=== PATIENT | female | born 1955 | race Caucasian/White ===

== ENCOUNTER 2017-04-05 09:00 | Inpatient (IN) ==
[2017-04-05] MEDS ORDERED: Acetaminophen 325 MG TABLET PO PRN (10:42)
[2017-04-05] MEDS ORDERED: Ondansetron 4 MG/2 ML VIAL IVP PRN (10:42)
[2017-04-05] MEDS ORDERED: *HR* Morphine 2 MG/ML SYRINGE IVP PRN (10:42)
[2017-04-05] MEDS ORDERED: Naloxone 0.4 MG/ML INJ IVP PRN (10:42)
[2017-04-05] MEDS ORDERED: Nitroglycerin 0.4 MG TAB.SUBL SL PRN (10:55)
[2017-04-05] MEDS ORDERED: *HR* Heparin 5,000 UNIT/ML VIAL IVP PRN (11:01)
[2017-04-05] MEDS ORDERED: *HR* Dextrose 50 % in Water (Syg) 50 ML SYRINGE IVP PRN (11:29)
[2017-04-05] MEDS ORDERED: Dextrose Gel 15 GM PO PRN ×2 (11:29)
[2017-04-05] MEDS ORDERED: D5% in Water 1,000 ML IVC PRN (11:29)
[2017-04-05 11:41] LABS: Hematocrit 27.8 % (35.3-44.9); Immature Platelets 5.3 % (1.1-6.1); Mean Corpuscular HGB Conc 32.4 g/dL (31.6-35.5); Mean Corpuscular Hemoglobin 31.6 pg (28.0-33.3); Mean Corpuscular Volume 97.5 fL (83.0-100.0); Mean Platelet Volume 10.7 fL (9.4-12.4); Red Blood Count 2.85 M/mcL (3.82-4.97); Red Cell Distribution Width 17.7 % (11.5-14.5)
[2017-04-05 11:46] LABS: INR 1.1; Prothrombin Time 11.8 Seconds (9.4-12.1)
[2017-04-05 11:49] LABS: Activated Partial Thrombo Time 56.1 Seconds (26.0-36.0)
--- NOTE | 2017-04-05 11:52 | Internal Med History&Physical ---
Date of Encounter: 04/05/17 Time of Encounter: 11:00 Assessment and Plan (1) Congestive heart failure Current visit: No Status: Acute Acute exacerbation of CHF, unspecified, new onset - causing pulmonary edema and bilateral leg edema - rule out ACS BNP - 1202 Troponin - 0.45 D-dimer - 1295 EKG - sinus tachycardia with no acute ST-T changes CT angiogram chest - pending Continue aspirin, statin and metoprolol Morphine when necessary and nitroglycerin when necessary DuoNeb breathing treatment Strict I's and O's, Galloway catheter, fluid restriction IV Lasix twice a day Cardiology consult - discussed with Dr. An Repeat EKG Echocardiogram pending Labs in a.m. Qualifiers: Congestive heart failure type: unspecified congestive heart failure type Congestive heart failure chronicity: acute Qualified Code(s): I50.9 - Heart failure, unspecified (2) Elevated troponin I level Current visit: No Status: Acute Troponin initially - 0.45, we will trend Rule out ACS Cardiology consult - discussed with Dr. An (3) TIA (transient ischemic attack) Current visit: Yes Status: Acute Transient slurred speech and right-sided weakness - symptoms now completely resolved Unclear if patient even had a TIA Normal strength in all extremities, and cranial nerves intact CT brain - pending Qualifiers: Transient cerebral ischemia type: unspecified Qualified Code(s): G45.9 - Transient cerebral ischemic attack, unspecified (4) Elevated d-dimer Current visit: No Status: Acute History of recent upper extremity DVT - not on anticoagulation Rule out pulmonary embolus CT angiogram of chest for PE - pending Continue IV heparin (5) Multiple myeloma Current visit: No Status: Chronic Recent stem cell transplant at [facility] Follows up with transplant medicine at [facility] - Dr Christiano Alvarado as stated the patient has responded well to the transplant Oncology consult Qualifiers: Multiple myeloma remission status: in remission Qualified Code(s): C90.01 - Multiple myeloma in remission (6) Type 2 diabetes mellitus Current visit: No Status: Chronic Diabetes mellitus type 2, [id number], hypoglycemia Continue his sliding scale, glucose checks Hold metformin Qualifiers: Diabetes mellitus complication detail: with diabetic retinopathy Diabetic retinopathy severity: with unspecified retinopathy severity Diabetes mellitus macular edema: macular edema presence unspecified Diabetes mellitus terminal gauger insulin use: without prison use Laterality: bilateral Qualified Code(s): E11.319 - Type 2 diabetes mellitus with unspecified diabetic retinopathy without macular edema (7) Essential hypertension Current visit: Yes Status: Chronic Controlled, continue current meds, monitor (8) DVT prophylaxis Current visit: Yes Status: Acute Continue IV heparin Internal Medicine - H&P: HPI Chief complaint: Shortness of breath Admitted From: Hospital to Hospital Transfer Plans for Post Hospital Care: Home History of present illness: Ms. Saul is a 61 year old female with PMH of hypertension, hyperlipidemia, recent upper extremity DVT and recent diagnosis of multiple myeloma status post stem cell transplant. Patient follows up at [facility] with transplant medicine. She was discharged about 6 days ago after undergoing a stem cell transplant. Patient presents as a transfer from [facility] for shortness of breath and elevated troponin. Patient was transferred here at the request of ED physician and request of family. ED physician Les has discussed with transplant medicine physician, Dr Alvarado at [facility], and he has stated that patient has responded well to her recent stem cell transplant and that she should be treated as if she is back to baseline. Patient follows up with Dr. Gonsalez. On examination patient is awake and alert. Not in any distress. Able to provide history. Her sisters are at bedside, and they provide history as well. Patient seems to be in some discomfort due to the shortness of breath. She is able to speak in full sentences. Patient states she woke up around 3 AM this morning feeling short of breath. She tried to walk to the bathroom and shortness of breath was worse. Her apparently found her in the bathroom and she was struggling to breathe. There was also some concern that the patient may have had slurred speech and right-sided weakness, but patient states this was due to her progress of breath. The right-sided weakness and slurred speech seemed to have resolved completely now. According to family patient has received a lot of fluids during the procedure at [facility] and her lower leg edema and shortness of breath have been going on for almost 1 week. The lower leg edema is also worsening. Shortness of breath is worse with lying flat and on exertion. Patient says she has been doing well since his discharge from where she continued to have mild shortness of breath. She denies chest pain, denies palpitations, denies abdominal pain, denies cough and denies fever. She states she has had ongoing diarrhea for the past few weeks and also had 2 episodes of vomiting today. No alleviating factors. No other associated symptoms. Patient states that her symptoms are about the same at present. Initial evaluation at [facility] revealed elevated troponin, elevated d-dimer, elevated, elevated BNP and x-ray revealed pulmonary edema with bibasilar atelectasis. Patient was given IV Lasix and has also been started on IV heparin as per protocol at [facility]. Initial EKG shows sinus tachycardia with no acute ST-T changes. Patient has also been given aspirin in the ED. Patient is being admitted for suspected CHF, elevated troponin and elevated d-dimer. We will continue IV Lasix, IV heparin and we will get a CT chest with PE protocol. Cardiology consult. Patient and family have been explained about her condition and plan of care. They understood and agreed. No unanswered questions. CODE STATUS full code. Past Med Surg Social Fam HX - Past Medical History Medical history: cancer (Multiple myeloma), DVT, diabetes, hyperlipidemia, hypertension, other Psychiatric history: anxiety, depression - Past Surgical History Surgical History: other (Recent stem cell transplant for multiple myeloma), arthroscopy - Social History Smoking Status: Current every day smoker Smokeless Tobacco Status: No Alcohol use: none Drug use: none Internal Medicine - H&P: Meds Glimepiride [Amaryl] 4 mg PO BID 08/18/15 [History] Gabapentin [Neurontin] 300 mg PO TID 10/14/16 [History] Melatonin [Melatin] 3 mg PO HS PRN 10/14/16 [History] Metformin HCl [Fortamet] 1,000 mg PO BID 10/14/16 [History] Calcium Carbonate [Calcium] 600 mg PO BID #60 tablet 01/29/17 [Rx] Acyclovir [Zovirax] 400 mg PO BID 03/02/17 [History] Prochlorperazine Maleate [Compazine] 10 mg PO Q4H PRN 03/02/17 [History] Docusate Sodium [Colace] 100 mg PO QAM 04/05/17 [History] Furosemide [Lasix] 40 mg PO QAM 04/05/17 [History] LORazepam [Ativan] 0.5 mg PO Q4-6H PRN 04/05/17 [History] Loratadine [Allergy Relief] 10 mg PO QAM 04/05/17 [History] Ondansetron HCl [Zofran] 4 mg PO Q6H PRN 04/05/17 [History] Tramadol HCl [Ultram] 100 mg PO Q4-6H PRN 04/05/17 [History] Allergies No Known Allergies Allergy (Verified 03/02/17 10:18) All Systems PM: A 10-system review of systems was performed and is negative for pertinent findings except as documented above in the HPI. - Constitutional Constitutional: fatigue, weakness, no fever(s) - EENT Eyes: no blurry vision Additional comments: History of diabetic retinopathy - Cardiovascular Cardiovascular ROS IM: diaphoresis, dyspnea, dyspnea on exertion, edema, lightheadedness, orthopnea, no chest pain, no palpitations, no syncope - Respiratory Respiratory: dyspnea, dyspnea on exertion, wheezing, chest congestion, no cough , no hemoptysis - Gastrointestinal Gastrointestinal: diarrhea, vomiting, no abdominal pain, no bloating, no cramping, no hematochezia, no melena, no nausea - Genitourinary Genitourinary: no dysuria - Musculoskeletal Musculoskeletal ROS IM: no arthralgias - Neurological Neurological ROS: numbness (Transient right-sided), no abnormal gait, no abnormal speech, no convulsions, no dizziness, no focal weakness, no headache(s) , no loss of vision, no memory loss, no tingling - Constitutional Vitals: Temp Pulse Resp BP Pulse Ox 98.1 F 119 18 137/81 94 04/05/17 10:59 04/05/17 10:59 04/05/17 10:59 04/05/17 10:59 04/05/17 10:59 General appearance: Present: mild distress, A&O X 3, pleasant, answers questions appropriately Exam: Generalized weakness, ill-appearing, discomfort due to shortness of breath - Head Head exam: Present: atraumatic - Eye Eye exam: Present: EOMI - Respiratory Respiratory exam: Present: accessory muscle use, CTAB, rales (Mild bilateral), tachypnea. Absent: rhonchi, wheezes - Cardiovascular Cardiovascular exam: Present: +S1, +S2, systolic murmur, tachycardia - GI/Abdominal GI/Abdominal exam: Present: soft, no peritoneal signs. Absent: distended, firm , guarding, tenderness - Extremities Exam Extremities exam: Present: pedal edema (Bilateral lower leg 3+ pitting), radial pulses palpable and symetrical. Absent: cyanotic, tenderness - Neurological Exam Neurological exam: Present: alert, oriented X3. Absent: motor sensory deficit, no focal deficits, facial droop, speech deficit Internal Med - H&P Results - Labs CBC & Chem 7: 07 11:34 Labs: Labs done this morning at [facility] - reviewed by me Troponin - 0.45 BN peptide - 1202 D-dimer - 1295 H/H - 9.0/27.8 Platelets - 104 - EKG Data -: EKG Interpreted by Myself EKG shows normal: sinus rhythm Rate: tachycardia
[2017-04-05] MEDS: Insulin LISPRO 300 UNITS/3 ML VIAL SQ SCH ×3 (13:13→22:21)
[2017-04-05] MEDS ORDERED: 0.9 % Sodium Chloride 500 ML ONE (13:16)
[2017-04-05] MEDS: Nicotine 21 MG PATCH.TD24 TD SCH (13:21)
[2017-04-05] MEDS: Heparin 25,000 UNIT/500 ML D5W 25,000 UNIT/500 ML MLS IVC SCH (13:32)
[2017-04-05] MEDS ORDERED: *HR* LORazepam 2 MG/ML VIAL IVP ONE (13:44)
[2017-04-05] MEDS: *HR* Heparin 5,000 UNIT/ML VIAL IVP PRN ×2 (13:50→22:21)
[2017-04-05 14:58] LABS: Bilirubin,Urine Negative (Negative); Blood,Urine Trace (Negative); Clarity,Urine Clear (Clear); Color,Urine Yellow (Yellow); Glucose,Urine (UA) Normal (Normal); Ketones,Urine Negative (Negative); Leukocyte Esterase,Urine Negative (Negative); Nitrite,Urine Negative (Negative); PH,Urine 6.5 pH Units (5.0-8.0); Protein,Urine 30 mg/dL (Neg-Trace); Specific Gravity,Urine 1.017 (1.010-1.025); Urobilinogen,Urine Normal (Normal)
[2017-04-05 15:01] LABS: Bacteria,Urine None Seen per hpf (None-Few); Hyaline Casts,Urine None Seen per lpf (None-Few); RBC,Urine 0-3 per hpf (0-3); Squamous Epithelial Cell,Urine Moderate per lpf (None-Few); WBC,Urine 0-3 per hpf (0-3)
[2017-04-05] MEDS ORDERED: Furosemide 40 MG/4 ML VIAL IVP ONE (15:11)
--- NOTE | 2017-04-05 15:22 | Oncology Inp Consult Note ---
Date of Encounter: 04/05/17 Time of Encounter: 15:00 Assessment and Plan (1) Multiple myeloma Status: Chronic Assessment and plan: s/p recent PBSCT at [facility]. She will f/u with [facility] and here at [facility] with staging labs periodically Ac pulm edema/fluid overload. Recent high dose chemo/auto transplant at [facility]-- hospital discharge 2 wks ago. Echo completed, result spending. Monitor troponins. On IV heparin/diuresis. Rt IJ thrombus-new in CTA, had prior basilic vein thrombus rt upper ext. Wsa on eliquis. On heparin, consider short term anticoag with eliquis. Likely related to catheter. Rpt doppler studies. Ativan for anxiety sleep and oxycodone written per pt's request-home meds Plan of care d/w patient and family bedside. Qualifiers: Multiple myeloma remission status: in remission Qualified Code(s): C90.01 - Multiple myeloma in remission - Data of Consult Requesting Physician: Jareth Najera DO Primary Care Provider: Dayanara Solano CNP - Consult Narrative Reason for consult: myeloma chf History of present illness: Ms. Saul is a 61 year old female with a diagnosis of IgG kappa multiple myeloma status post bone marrow biopsy in September 2016 was treated with Revlimid Velcade and dexamethasone and status post autologous stem cell transplant in February 2017, status post palliative radiation October 2016 to left shoulder hospitalized with fluid overload/pulmonary edema. Review of history is also significant for diabetes, hypertension, right upper extremity thrombosis from prior Doppler studies as well as CT imaging showing no evidence of PE new suspected thrombosis in the right internal jugular vein, moderate bilateral pleural effusions related to CHF. Patient is hospitalized for pulmonary edema, BNP elevated in 1000. Denies any chest pain. Bilateral lower extremity swelling present, nice any upper extremity swelling or pain. Past Med Surg Social Fam HX - Past Medical History Medical history: cancer (Multiple myeloma), DVT, diabetes, hyperlipidemia, hypertension, other Psychiatric history: anxiety, depression - Past Surgical History Surgical History: other (Recent stem cell transplant for multiple myeloma), arthroscopy - Social History Smoking Status: Current every day smoker Smokeless Tobacco Status: No Alcohol use: none Drug use: none Medications and Allergies Glimepiride [Amaryl] 4 mg PO BID 08/18/15 [History] Gabapentin [Neurontin] 300 mg PO BID 10/14/16 [History] Melatonin [Melatin] 3 mg PO HS PRN 10/14/16 [History] Calcium Carbonate [Calcium] 600 mg PO BID #60 tablet 01/29/17 [Rx] Acyclovir [Zovirax] 400 mg PO BID 03/02/17 [History] Prochlorperazine Maleate [Compazine] 10 mg PO Q4H PRN 03/02/17 [History] Atenolol [Tenormin] 50 mg PO DAILY 04/05/17 [History] Furosemide [Lasix] 40 mg PO QAM 04/05/17 [History] Loperamide [Imodium] 2 mg PO Q4HR PRN MDD 8 TABLETS 04/05/17 [History] Metformin HCl [Glucophage] 1,000 mg PO BID 04/05/17 [History] Ondansetron HCl [Zofran] 4 mg PO Q6H PRN 04/05/17 [History] Potassium Chloride [K-Tab ER] 20 meq PO BID 04/05/17 [History] Allergies No Known Allergies Allergy (Verified 04/05/17 14:33) Review of systems: as in HPI Oncology - Exam - Constitutional Vitals: Temp Pulse Resp BP Pulse Ox 98.1 F 119 18 137/81 94 04/05/17 10:59 04/05/17 10:59 04/05/17 10:59 04/05/17 10:59 04/05/17 14:41 General appearance: average body habitus - Head Head exam: Present: normal inspection - Eye Eye exam: Present: sclera anicteric - ENT ENT exam: Present: mucous membranes moist, normal oropharynx - Neck Neck exam: Present: full ROM - Respiratory Respiratory exam: Present: CTAB - Cardiovascular Cardiovascular exam: Present: +S1, +S2, tachycardia - GI/Abdominal GI/Abdominal exam: Present: normal bowel sounds, soft - Extremities Exam Extremities exam: Present: pedal edema - Neurological Exam Neurological exam: Present: alert, CN II-XII intact, oriented X3 - Psychiatric Psychiatric exam: Present: normal affect Oncology - Results - Labs Labs: Short CBC 04/05/17 Range/Units 11:34 WBC 9.8 (4.3-11.1) K/mcL Hgb 9.0 L (11.5-15.4) g/dL Hct 27.8 L (35.3-44.9) % Plt Count 104 L (140-400) K/mcL Cardiac Enzymes 04/05/17 Range/Units 11:34 Troponin I 0.52 H* (0-0.03) ng/mL Urine 04/05/17 Range/Units 14:25 Urine Color Yellow (Yellow) Urine Clarity Clear (Clear) Urine pH 6.5 (5.0-8.0) pH Units Ur Specific [place] 1.017 (1.010-1.025) Urine Protein 30 H (Neg-Trace) mg/dL Urine Glucose (UA) Normal (Normal) mg/dL - Imaging and Cardiology CT scan - chest Status: image reviewed by me Consult Discharge Plan - Plan Referrals: Dayanara Solano, ARCHAEOLOGIST [Primary Care Provider] -
[2017-04-05] MEDS: Ipratropium/Albuterol Neb 3 ML IH SCH ×2 (15:35→22:29)
[2017-04-05] MEDS ORDERED: *HR* OxyCODONE Immed Rel 5 MG TABLET PO PRN (17:39)
[2017-04-05] MEDS: Famotidine 20 MG/2 ML VIAL IVP SCH (18:25)
[2017-04-05] MEDS: Furosemide 40 MG/4 ML VIAL IVP SCH (19:29)
[2017-04-05] MEDS: *HR* LORazepam 0.5 MG TABLET PO PRN (22:20)
[2017-04-05] MEDS ORDERED: Melatonin 3 MG TABLET PO ONE (22:50)
[2017-04-06] MEDS: Ipratropium/Albuterol Neb 3 ML IH SCH ×4 (04:20→22:13)
[2017-04-06] MEDS: Famotidine 20 MG/2 ML VIAL IVP SCH (05:02)
[2017-04-06 05:24] LABS: INR 1.1; Prothrombin Time 12.3 Seconds (9.4-12.1)
[2017-04-06 05:27] LABS: Activated Partial Thrombo Time 68.2 Seconds (26.0-36.0)
[2017-04-06 05:35] LABS: Alanine Aminotransferase 12 Units/L (0-55); Albumin 2.4 g/dL (3.5-5.0); Albumin/Globulin Ratio 0.7 (1.1-2.2); Alkaline Phosphatase 108 Units/L (38-126); Aspartate Amino Transferase 22 Units/L (5-34); BUN/Creatinine Ratio 16 (6-26); Bilirubin,Total 0.3 mg/dL (0.2-1.2); Blood Urea Nitrogen 13 mg/dL (7-20); Calcium 8.3 mg/dL (8.6-10.8); Carbon Dioxide 28 mEq/L (19-29); Chloride 95 mEq/L (98-109); Globulin 3.3 g/dL (2.4-3.5); Glucose 271 mg/dL (70-99); Osmolality,Calculated 286 (280-300); Potassium 3.4 mEq/L (3.5-4.5); Sodium 133 mEq/L (136-145); Total Protein 5.7 g/dL (6.0-8.3); eGFR For African Americans > 60 (> 60); eGFR For Non-African Americans > 60 (> 60)
[2017-04-06 06:13] LABS: Basophils % 0.2 %; Hematocrit 26.7 % (35.3-44.9); Hemoglobin 8.8 g/dL (11.5-15.4); Immature Platelets 4.7 % (1.1-6.1); Lymphocytes # 0.4 K/mcL (0.6-4.6); Lymphocytes % 2.3 %; Mean Corpuscular Hemoglobin 31.8 pg (28.0-33.3); Mean Corpuscular Volume 96.4 fL (83.0-100.0); Mean Platelet Volume 10.4 fL (9.4-12.4); Monocytes # 1.4 K/mcL (0.0-1.3); Monocytes % 8.9 %; Nucleated Red Blood Cells 0.3 /100 WBC (0); Platelet Count 149 K/mcL (140-400); Red Blood Count 2.77 M/mcL (3.82-4.97); Red Cell Distribution Width 18.1 % (11.5-14.5); Segmented Neutrophils % 86.6 %
[2017-04-06 06:14] LABS: Neutrophils # 13.9 K/mcL (1.6-8.9)
[2017-04-06] MEDS ORDERED: Cosyntropin 250 MCG/2 ML VIAL IVP ONE (08:30)
[2017-04-06] MEDS: Aspirin 81 MG TAB.CHEW PO SCH (08:59)
[2017-04-06] MEDS: Nicotine 21 MG PATCH.TD24 TD SCH (09:00)
[2017-04-06] MEDS: Furosemide 40 MG/4 ML VIAL IVP SCH ×2 (09:00→16:48)
[2017-04-06] MEDS: Insulin LISPRO 300 UNITS/3 ML VIAL SQ SCH ×4 (09:02→22:26)
--- NOTE | 2017-04-06 10:47 | Cardiology Consult Note ---
Date of Encounter: 04/06/17 Time of Encounter: 09:30 Assessment and Plan (1) Systolic congestive heart failure, NYHA class 3 Current Visit: Yes Status: Acute Per cardiology: -Echo 04/05/17 with LVEF 35%, moderate global LV systolic dysfunction with regional variations, indeterminate diastolic function, severe left atrial enlargement, moderate MR which may be underestimated, mild MR, mild MI, moderate pulmonary hypertension, apex, apical inferior, basal inferior, apical anterior, apical septal, mid inferior septal, apical lateral, and, mid anterior septal hinson hypokinetic, all other hinson with normal motion. -New cardiology with Echo at [facility] 01/28/17 with LVEF 62%. -Significant volume overload with patient reporting gained 20 pounds of weight during recent hospital stay at [facility]. 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 -Patient with 3+ pitting edema bilaterally. Patient reports normally no edema. -On lasix IV BID. -Net negative 1 liter since admission. -Patient with shortness of breath, requiring O2. -Recommend continuing diuresis, strict i/os. fluid restriction, and daily weights. -Will continue to monitor. (2) Cardiomyopathy Current Visit: Yes Status: Acute Per cardiology: -New cardiomyopathy with current LVEF 35%, previous 62% at [facility] 01/2017. -On beta carson. -Recommend LHC when clinically stable. Unable to lay flat for LHC due to significant volume overload. ALso with elevated WBC at 16.1. -Per discussion with , will start seng inhibitor after LHC. Qualifiers: Cardiomyopathy type: unspecified Qualified Code(s): I42.9 - Cardiomyopathy , unspecified (3) Elevated troponin I level Current Visit: No Status: Acute Per cardiology: -Elevated troponin at 0.45, 0.52, 0.51, 0.46. -Troponins flat and adynamic in the setting of CHF, leukocytosis. -Patient denies chest pain. -ECG with no ischemic changes. -Echo as above. -Do not suspect NSTEMI, suspect demand ischemia related to CHF and leukocytosis. No cardiac rehab warranted at this time. -Do plan for LHC when clinically stable for LHC. (4) Leukocytosis Current Visit: Yes Status: Acute Per cardiology: -WBC today 16.1 -WBC count previous in February 0.1, 0.5. -WBC at time of discharge at [facility] 9. -Afrebrile. -Management per primary service. -Can consider medina-cultures. Qualifiers: Leukocytosis type: unspecified Qualified Code(s): D72.829 - Elevated white blood cell count, unspecified (5) Multiple myeloma Current Visit: No Status: Chronic Per cardiology: -KNown multiple myeloma with recent stem cell transplant at [facility] 03/19/17. -Management per primary and oncology services. Qualifiers: Multiple myeloma remission status: in remission Qualified Code(s): C90.01 - Multiple myeloma in remission (6) Tachycardia Current Visit: Yes Status: Acute Per cardiology: -Patient with sinus tachycardia in the setting of leukocytosis and CHF. -At time of assessment average HR 119. -Patient's HR re-evaluated and noted to be 100s. -On beta carson. -Will continue to monitor. Discussion w patient/family: The assessment and plan as outlined above was discussed with the patient and/or family members who expressed understanding and agreement. All questions were answered. Thank you for involving us in the care of your patient. Please call with any questions. Discussed and reviewed with . History of Present Illness Consult date: 04/05/17 Requesting physician: Jacob Guo Consult reason: elevated troponin, CHF Chief complaint: shortness of breath History of present illness: Ms. Saul is a 61 year old female with a relevant past medical history of DM, HTN, multiple myeloma with recent stem cell transplant at [facility] 02/2017. Patient states she was discharged from [facility] on Thursday. Patient states she had significant edema at the time of discharge. Patient presented to [facility] with complaints of increased shortness of breath. Cardiology was consulted for elevated troponin and CHF. Patient denies chest pain. Patient admits to shortness of breath. Patient admits to fatigue, however states this has been normal since undergoing treatments for multiple myeloma. Patient states she gained 20 pounds while admitted at [facility]. Patient states she normally does not have any edema in lower extremities and states significant edema now. Patient reports had DVT that was diagnosed in January and was on blood thinner at home. Patient denies active bleeding or blood loss. Past Med Surg Social Fam HX - Past Medical History Attestation: Yes The following information was validated with the patient. Source: patient, old records reviewed, obtained from family Medical history: cancer (Multiple myeloma), DVT, diabetes, hyperlipidemia, hypertension, other Psychiatric history: anxiety, depression - Past Surgical History Surgical History: other (Recent stem cell transplant for multiple myeloma), arthroscopy - Social History Smoking Status: Current every day smoker Smokeless Tobacco Status: No Alcohol use: none Drug use: none Medications and Allergies Glimepiride [Amaryl] 4 mg PO BID 08/18/15 [History] Gabapentin [Neurontin] 300 mg PO BID 10/14/16 [History] Melatonin [Melatin] 3 mg PO HS PRN 10/14/16 [History] Calcium Carbonate [Calcium] 600 mg PO BID #60 tablet 01/29/17 [Rx] Acyclovir [Zovirax] 400 mg PO BID 03/02/17 [History] Prochlorperazine Maleate [Compazine] 10 mg PO Q4H PRN 03/02/17 [History] Atenolol [Tenormin] 50 mg PO DAILY 04/05/17 [History] Furosemide [Lasix] 40 mg PO QAM 04/05/17 [History] Loperamide [Imodium] 2 mg PO Q4HR PRN MDD 8 TABLETS 04/05/17 [History] Metformin HCl [Glucophage] 1,000 mg PO BID 04/05/17 [History] Ondansetron HCl [Zofran] 4 mg PO Q6H PRN 04/05/17 [History] Potassium Chloride [K-Tab ER] 20 meq PO BID 04/05/17 [History] Allergies No Known Allergies Allergy (Verified 04/05/17 14:33) All Systems Review: A 10-system review of systems was performed and is negative for pertinent findings except as documented above in the HPI. - Cardiovascular Cardiovascular: as per HPI, dyspnea at rest, dyspnea on exertion, leg edema Physical Examination Vital Signs, Last 4 Hours Temp Pulse Resp BP Pulse Ox 04/06/17 07:25 98.6 F 117 20 101/65 97 General: Conversant, No Apparent Distress HEENT: Atraumatic, Normocephaly, Mucus Membranes Moist Neck: No JVD, Normal carotid pulses Cardiac: Normal S1 and S2, No Murmur, Other (Tachycardic. ) Lungs: Normal Breath Sounds, No Wheeze, Rales, Rhonchi Neuro: Alert and responsive, No focal deficits noted Abdomen: Soft, Non-Tender Skin: No rashes noted on visualized skin Musculoskeletal: No Chest Wall Tenderness Extremities: No Clubbing, No Cyanosis, Normal Pulses, Other (3+ bilateral lower extremity pitting edema. ) Results 04/06/17 05:59 04/06/17 04:57 Lab Results Impressions Chest CTA 04/05/17 10:51 IMPRESSION: No evidence of pulmonary embolism. Moderate-sized bilateral pleural effusions which may be related to CHF. New suspected thrombosis of the right internal jugular vein. Stable dilated azygos vein. Bibasilar atelectasis. D/ / 04/05/2017 12:56:57 Yousif Amin MD / mikal Interpreting Provider: Yousif Amin MD Head CT 04/05/17 11:24 IMPRESSION: No acute intracranial abnormality. Findings compatible with calcified meningioma along right side of interhemispheric falx in the right frontal region measuring 2.0 x 1.8 cm. D/ / 04/05/2017 12:41:32 James Reddy MD / earnold Interpreting Provider: James Reddy MD Active Medications Acetaminophen (Tylenol) 650 mg PO Q6HR PRN PRN Reason: Mild Pain (1-3) Stop: 10/05/17 10:43 Albuterol/Ipratropium (Duoneb) 3 ml IH [id number] ALYSSIA PRN Reason: Protocol Stop: 10/05/17 16:01 Last Admin: 04/06/17 04:20 Dose: 3 ml Aspirin (Aspirin) 81 mg PO DAILY [facility] Stop: 10/06/17 09:01 Last Admin: 04/06/17 08:59 Dose: 81 mg Atorvastatin Calcium (Lipitor) 40 mg PO HS [facility] Stop: 10/05/17 11:01 Last Admin: 04/05/17 22:20 Dose: 40 mg Calcium Carbonate (Tums) 500 mg PO BID [facility] Stop: 10/05/17 21:01 Last Admin: 04/06/17 08:59 Dose: 500 mg Dextrose/Water (Dextrose 50% (Syg)) 25 ml IVP AD PRN PRN Reason: Hypoglycemia Stop: 10/05/17 11:30 Docusate Sodium (Colace) 100 mg PO QAM ALYSSIA PRN Reason: Protocol Stop: 10/06/17 09:01 Last Admin: 04/06/17 08:59 Dose: 100 mg Famotidine (Pepcid) 20 mg PO 0730,1630 [facility] PRN Reason: Protocol Stop: 10/06/17 16:31 Furosemide (Lasix) 40 mg IVP BIDDIURETIC AYLSSIA Stop: 10/05/17 17:01 Last Admin: 04/06/17 09:00 Dose: 40 mg Glucagon (Glucagen) 1 mg IM ONCE PRN PRN Reason: Hypoglycemia Stop: 10/05/17 11:30 Glucose (Gluctose) 15 gm PO ONCE PRN PRN Reason: Hypoglycemia Stop: 10/05/17 11:30 Glucose (Gluctose) 30 gm PO ONCE PRN PRN Reason: Hypoglycemia Stop: 10/05/17 11:30 Heparin Sodium (Porcine) (Heparin) 2,000 unit IVP Q6H PRN PRN Reason: SEE COMMENTS Stop: 10/05/17 10:50 Last Admin: 04/05/17 22:21 Dose: 2,000 unit Heparin Sodium (Porcine) (Heparin) 4,000 unit IVP Q6HR PRN PRN Reason: SEE COMMENTS Stop: 10/05/17 11:02 Heparin Sodium/Dextrose (Heparin 25,000 Unit/500 Ml D5w) 25,000 unit in 500 mls @ 16.8 mls/hr IVC .Q24H ALYSSIA; 12 UNIT/KG/HR PRN Reason: Protocol Stop: 10/05/17 11:01 Last Titration: 04/06/17 05:32 Dose: 16.28 unit/kg/hr, 22.8 mls/hr Dextrose (Dextrose 5%) 1,000 mls @ 100 mls/hr IVC .Q10H PRN PRN Reason: HYPOGLYCEMIA Stop: 10/05/17 11:30 Insulin Human Lispro (Humalog) 0 units SQ TIDAC [facility] PRN Reason: Protocol Stop: 10/05/17 11:31 Last Admin: 04/06/17 09:02 Dose: 10 units Insulin Human Lispro (Humalog) 0 units SQ HS ALYSSIA PRN Reason: Protocol Stop: 10/05/17 21:01 Last Admin: 04/05/17 22:21 Dose: 6 units Lorazepam (Ativan) 0.5 mg PO HS PRN PRN Reason: Insomnia Stop: 10/05/17 17:40 Last Admin: 04/05/17 22:20 Dose: 0.5 mg Melatonin (Melatonin) 6 mg PO HS PRN PRN Reason: Sleep Stop: 10/06/17 21:01 Metoprolol Tartrate (Lopressor) 25 mg PO BID ALYSSIA Stop: 10/05/17 11:01 Last Admin: 04/06/17 06:13 Dose: 25 mg Naloxone HCl (Narcan) 0.4 mg IVP Q2MIN PRN PRN Reason: Opioid Reversal Stop: 10/05/17 10:43 Nicotine (Nicoderm) 21 mg TD DAILY ALYSSIA PRN Reason: Protocol Stop: 10/05/17 11:46 Last Admin: 04/06/17 09:00 Dose: 21 mg Nitroglycerin (Nitroglycerin) 0.4 mg SL Q5MIN PRN PRN Reason: Chest Pain Stop: 10/05/17 10:56 Ondansetron HCl (Zofran) 4 mg IVP Q8HR PRN PRN Reason: Nausea And Vomiting Stop: 10/05/17 10:43 Oxycodone HCl (Roxicodone) 5 mg PO Q6HR PRN PRN Reason: Moderate to Severe Pain (4-10) Stop: 10/05/17 17:40 Laboratory Tests 03/02/17 03/03/17 03/04/17 09:22 08:58 08:36 WBC 0.1 L* 0.2 L* D 0.5 L* D Hgb Neutrophils # Creatinine Troponin I 04/05/17 04/05/17 04/05/17 07:15 11:34 11:34 WBC 9.8 Hgb Neutrophils # Creatinine Troponin I 0.45 H* 0.52 H* 04/05/17 04/05/17 04/06/17 16:56 22:56 04:57 WBC Hgb Neutrophils # Creatinine 0.79 Troponin I 0.51 H* 0.46 H* 04/06/17 05:59 WBC 16.1 H D Hgb 8.8 L Neutrophils # 13.9 H Creatinine Troponin I - Imaging and Cardiology Chest Xray: report reviewed Echo: report reviewed Other Results: Chest CTA report reviewed. - EKG Interpretation EKG results cardiology: personally reviewed (ECG with sinus tachycardia, HR 119. ), other (Telemetry reviewed with average HR previous 12 hours noted to be 117, sinus tachycardia. PVC and PACs noted.) Consult Discharge Plan - Plan Referrals: Dayanara Solano, [employer] [Primary Care Provider] -
[2017-04-06] MEDS: *HR* Heparin 5,000 UNIT/ML VIAL IVP PRN (12:16)
[2017-04-06] MEDS: Heparin 25,000 UNIT/500 ML D5W 25,000 UNIT/500 ML MLS IVC SCH ×2 (12:22→16:59)
--- NOTE | 2017-04-06 15:03 | Internal Med Progress Note ---
<Mario Wilder - Last Filed: 04/06/17 16:33> Date of Encounter: 04/06/17 Time of Encounter: 15:01 - Assessment and plan (1) Congestive heart failure Current Visit: Yes Status: Acute Assessment and plan: - Patient has history of recurrent failure with reduced ejection fraction. Echocardiogram on 04/05/17 showed EF of 35%, moderate global left ventricular dysfunction, severe left atrial enlargement. This is a decrease since last echocardiogram in January 2017, EF at that time was 60% - BNP in emergency department was 1202 - Cardiology following, plan to do left heart catheterization once patient is more stable. Appreciate recommendations - We will continue aspirin, statin, metoprolol, IV Lasix twice a day - We will monitor strict I/Os Qualifiers: Congestive heart failure type: systolic Congestive heart failure chronicity : acute Qualified Code(s): I50.21 - Acute systolic (congestive) heart failure (2) Elevated troponin I level Current Visit: Yes Status: Acute Assessment and plan: - Troponin emergency department was 0.52, has down trended to 0.46 - Likely result of demand ischemia secondary to congestive heart failure exacerbation - Cardiology following, plan to perform left heart catheterization once patient is medically stable - Patient taking aspirin, metoprolol. Per cardiology, plan on SHAYNE inhibitor upon discharge (3) Elevated d-dimer Current Visit: Yes Status: Acute Assessment and plan: - D-dimer in the emergency department was 1295 - CTA revealed no pulmonary embolism, however it did reveal bilateral pleural effusions, thrombosis of right internal jugular vein - Ultrasound of the upper extremities revealed bilateral deep venous thrombosis. Ultrasound of lower extremities ordered, pending results - Patient has received eloquis in the past with good results, however daughter states that for course can never be completed due to "drops in numbers" - Consult to oncology for appropriate anticoagulation, currently receiving heparin 25,000 units. Spoke with oncology, they agreed to starting eliquis for anticoagulation upon discharge. (4) Multiple myeloma Current Visit: No Status: Chronic Assessment and plan: - Status post bone marrow transplant - Patient instructed to follow up with oncologist, Dr. Alvarado as outpatient for further treatment Qualifiers: Multiple myeloma remission status: in remission Qualified Code(s): C90.01 - Multiple myeloma in remission - Time Spent With Patient Greater than 35 minutes - Subjective Interval history: Patient was seen and examined at bedside this morning. Patient states that her shortness of breath and lower extremity edema are improving since admission. She is currently using 3 L of oxygen via nasal cannula. He denies any symptoms fevers, chills, chest pain, abdominal pain. She has a Galloway catheter in place, with approximately 500 mL of branden urine. Patient states that she has recently gained 20 pounds in the 16 days prior to arrival. Patient's daughter states that she has had DVTs in the past and that she tolerates eliquis well, however she is never able to finish the course of treatment due to "her numbers going down". - Constitutional Vitals: Temp Pulse Resp BP Pulse Ox 98.2 F 109 28 107/62 98 04/06/17 11:14 04/06/17 11:14 04/06/17 11:14 04/06/17 11:14 04/06/17 11:14 General appearance: Present: mild distress, A&O X 3, pleasant, answers questions appropriately Exam: Gen.: Vitals noted. No acute distress. AAOx3. Sitting up on the bedside, speaking in full sentences HEENT: PERRL/EOMI, oropharynx clear, Normocephalic, atraumatic Neck: Supple. No adenopathy. Cardiac: RRR, no murmur, +S1/S2 Pulmonary: Mild Rales throughout, decreased lung sounds at the bases Abdomen: soft, nontender, BS noted, no guarding Back: Nontender throughout. MSK: ROM intact, no joint swelling noted Extremities: 1+ pitting pedal edema, nontender calf. Bilateral upper extremities tender to palpation, erythematous Neuro: A&Ox3, moves all extremities, no focal deficits Psych: Appropriate mood and behavior Internal Medicine: Result - Labs CBC & Chem 7: 04/06/17 05:59 04/06/17 04:57 Labs: Short CBC 04/06/17 Range/Units 05:59 WBC 16.1 H D (4.3-11.1) K/mcL Hgb 8.8 L (11.5-15.4) g/dL Hct 26.7 L (35.3-44.9) % Plt Count 149 (140-400) K/mcL Neutrophils # 13.9 H (1.6-8.9) K/mcL BMP 04/06/17 04:57 Sodium 133 L Potassium 3.4 L Chloride 95 L Carbon Dioxide 28 BUN 13 Creatinine 0.79 Glucose 271 H Calcium 8.3 L Cardiac Enzymes 04/05/17 04/05/17 Range/Units 16:56 22:56 Troponin I 0.51 H* 0.46 H* (0-0.03) ng/mL Liver Function 04/06/17 Range/Units 04:57 Total Bilirubin 0.3 (0.2-1.2) mg/dL AST 22 (5-34) Units/L ALT 12 (0-55) Units/L Alkaline Phosphatase 108 (38-126) Units/L Albumin 2.4 L (3.5-5.0) g/dL Urine 04/05/17 Range/Units 14:25 Urine Color Yellow (Yellow) Urine Clarity Clear (Clear) Urine pH 6.5 (5.0-8.0) pH Units Ur Specific [place] 1.017 (1.010-1.025) Urine Protein 30 H (Neg-Trace) mg/dL Urine Glucose (UA) Normal (Normal) mg/dL - ABG Interpretation ABG results: PT/INR, D-dimer PT 12.3 Seconds (9.4-12.1) H 04/06/17 04:57 - VTE Documentation of Mechanical Device: Intermittent pneumatic compression device Consult Discharge Plan - Plan Referrals: Dayanara Solano CNP [Primary Care Provider] - (web request) <Jareth Najera - Last Filed: 04/06/17 19:34> Date of Encounter: 04/06/17 - Assessment and plan (1) Congestive heart failure Current Visit: Yes Status: Acute Qualifiers: Congestive heart failure type: systolic Congestive heart failure chronicity : acute Qualified Code(s): I50.21 - Acute systolic (congestive) heart failure (2) Essential hypertension Current Visit: Yes Status: Chronic (3) Type 2 diabetes mellitus Current Visit: No Status: Chronic Qualifiers: Diabetes mellitus complication detail: with diabetic retinopathy Diabetic retinopathy severity: with unspecified retinopathy severity Diabetes mellitus macular edema: macular edema presence unspecified Diabetes mellitus detention insulin use: without detention use Laterality: bilateral Qualified Code(s): E11.319 - Type 2 diabetes mellitus with unspecified diabetic retinopathy without macular edema (4) Multiple myeloma Current Visit: No Status: Chronic Qualifiers: Multiple myeloma remission status: in remission Qualified Code(s): C90.01 - Multiple myeloma in remission (5) DVT of upper extremity (deep vein thrombosis) Current Visit: Yes Status: Acute Qualifiers: Affected thrombotic vein of extremity: brachial Chronicity: acute Laterality: right Qualified Code(s): I82.621 - Acute embolism and thrombosis of deep veins of right upper extremity (6) DVT of upper extremity (deep vein thrombosis) Current Visit: Yes Status: Acute Qualifiers: Affected thrombotic vein of extremity: brachial Chronicity: acute Laterality: left Qualified Code(s): I82.622 - Acute embolism and thrombosis of deep veins of left upper extremity - Constitutional Vitals: Temp Pulse Resp BP Pulse Ox 98.6 F 114 22 110/71 98 04/06/17 16:52 04/06/17 16:52 04/06/17 16:52 04/06/17 16:52 04/06/17 16:52 Internal Medicine: Result - Labs CBC & Chem 7: 04/06/17 05:59 04/06/17 04:57 Labs: Short CBC 04/06/17 Range/Units 05:59 WBC 16.1 H D (4.3-11.1) K/mcL Hgb 8.8 L (11.5-15.4) g/dL Hct 26.7 L (35.3-44.9) % Plt Count 149 (140-400) K/mcL Neutrophils # 13.9 H (1.6-8.9) K/mcL BMP 04/06/17 04:57 Sodium 133 L Potassium 3.4 L Chloride 95 L Carbon Dioxide 28 BUN 13 Creatinine 0.79 Glucose 271 H Calcium 8.3 L Cardiac Enzymes 04/05/17 Range/Units 22:56 Troponin I 0.46 H* (0-0.03) ng/mL Liver Function 04/06/17 Range/Units 04:57 Total Bilirubin 0.3 (0.2-1.2) mg/dL AST 22 (5-34) Units/L ALT 12 (0-55) Units/L Alkaline Phosphatase 108 (38-126) Units/L Albumin 2.4 L (3.5-5.0) g/dL - ABG Interpretation ABG results: PT/INR, D-dimer PT 12.3 Seconds (9.4-12.1) H 04/06/17 04:57 - Attending Attestation I examined this patient and my medical decision-making was reviewed with the Resident Physician on 04/06/17. I agree with the documented findings, disposition and treatment plan as described except to the extent set forth below. Ms. Peña is currently admitted for acute exac of systolic CHF. She is high risk due to potential for worsening cardiac status. Ms. Peña feels OK. She denies pain. On heparin drip. She has DVTs in both arms. No chest pain. No diarrhea. No fever or chills. Exam Alert. Comfortable Heart reg Lungs clear I/P 1. Systolic CHF 2. B/L DVT Further diagnoses and plan as above.
[2017-04-06] MEDS: Famotidine 20 MG TABLET PO SCH (16:48)
[2017-04-06] MEDS ORDERED: APIXABAN 5 MG TABLET PO SCH (21:00)
[2017-04-06] MEDS: *HR* LORazepam 0.5 MG TABLET PO PRN (22:27)
[2017-04-06] MEDS: *HR* OxyCODONE Immed Rel 5 MG TABLET PO PRN (22:27)
[2017-04-06] MEDS: Melatonin 3 MG TABLET PO PRN (22:27)
[2017-04-07 02:20] LABS: BUN/Creatinine Ratio 16 (6-26); Blood Urea Nitrogen 11 mg/dL (7-20); Calcium 7.8 mg/dL (8.6-10.8); Carbon Dioxide 30 mEq/L (19-29); Chloride 95 mEq/L (98-109); Glucose 167 mg/dL (70-99); Osmolality,Calculated 281 (280-300); Sodium 134 mEq/L (136-145); eGFR For African Americans > 60 (> 60); eGFR For Non-African Americans > 60 (> 60)
[2017-04-07] MEDS: Ipratropium/Albuterol Neb 3 ML IH SCH ×4 (03:24→21:08)
[2017-04-07 04:23] LABS: Hematocrit 25.1 % (35.3-44.9); Hemoglobin 8.2 g/dL (11.5-15.4); Immature Platelets 2.8 % (1.1-6.1); Mean Corpuscular HGB Conc 32.7 g/dL (31.6-35.5); Mean Corpuscular Hemoglobin 31.5 pg (28.0-33.3); Mean Corpuscular Volume 96.5 fL (83.0-100.0); Mean Platelet Volume 9.5 fL (9.4-12.4); Red Blood Count 2.6 M/mcL (3.82-4.97); Red Cell Distribution Width 18.4 % (11.5-14.5)
[2017-04-07] MEDS: Insulin LISPRO 300 UNITS/3 ML VIAL SQ SCH ×4 (08:41→20:58)
[2017-04-07] MEDS: Famotidine 20 MG TABLET PO SCH ×2 (08:43→17:57)
[2017-04-07] MEDS: Aspirin 81 MG TAB.CHEW PO SCH (08:43)
[2017-04-07] MEDS: Nicotine 21 MG PATCH.TD24 TD SCH (08:44)
[2017-04-07] MEDS: Furosemide 40 MG/4 ML VIAL IVP SCH ×2 (08:47→18:03)
--- NOTE | 2017-04-07 09:49 | Event Note ---
Date of Encounter: 04/07/17 Time of Encounter: 09:00 - Cardiology Event Note Patient with new cardiomyopathy. Patient states breathing is better today and she can lay flat. OF note, patient is net negative 3162ml since admission. PLatelets at discharge from [facility] noted to be 38. PLatelets today 151. Discussed with oncology Lizette Merchant CNP regarding possible need for antiplatelet therapy pending results of LHC. Lizette Merchant discussed with , oncologist and ok to proceed with LHC and use of anti-platelets if warranted. Discussed with Dr.Jennifer Lawler and updated on chronic anemia with hemoglobin 8, about baseline of 7-9, tachycardia with average HR 110, and ok for anti- platelet therapy if warranted. Dr.Jennifer Lawler states ok to proceed with LHC. Patient updated. Patient and family educated on risk versus benefits of LHC. Patient agreeable to proceed. All questions answered. Potassium today 3, replaced by primary service. Cardiology will give further recommendations pending LHC.
[2017-04-07 09:54] LABS: Heparin anti-factor XA UFH 1.02 IU/mL (0.30-0.70)
--- NOTE | 2017-04-07 10:49 | Internal Med Progress Note ---
<Mario Wilder - Last Filed: 04/07/17 14:57> Date of Encounter: 04/07/17 Time of Encounter: 10:47 - Assessment and plan (1) Congestive heart failure Current Visit: Yes Status: Acute Assessment and plan: - Patient has history of recurrent failure with reduced ejection fraction. Echocardiogram on 04/05/17 showed EF of 35%, moderate global left ventricular dysfunction, severe left atrial enlargement. This is a decrease since last echocardiogram in January 2017, EF at that time was 60% - BNP in emergency department was 1202 - Cardiology following, plan to do left heart catheterization this afternoon. Appreciate recommendations - Patient has been tachycardic, HR in 110s. Will increase her Metoprolol to 50 mg BID. - We will continue aspirin, statin, metoprolol, IV Lasix twice a day - We will monitor strict I/Os. Total of -3 L since admission, -3 kg Qualifiers: Congestive heart failure type: systolic Congestive heart failure chronicity : acute Qualified Code(s): I50.21 - Acute systolic (congestive) heart failure (2) Elevated troponin I level Current Visit: Yes Status: Acute Assessment and plan: - Troponin emergency department was 0.52, has down trended to 0.46 - Likely result of demand ischemia secondary to congestive heart failure exacerbation - Cardiology following, plan to perform left heart catheterization - Patient taking aspirin, metoprolol. Per cardiology, plan on SHAYNE inhibitor upon discharge (3) Elevated d-dimer Current Visit: Yes Status: Acute Assessment and plan: - D-dimer in the emergency department was 1295 - CTA revealed no pulmonary embolism, however it did reveal bilateral pleural effusions, thrombosis of right internal jugular vein - Ultrasound of the upper extremities revealed bilateral deep venous thrombosis. Ultrasound of lower extremities negative for DVT - Patient has received eloquis in the past with good results, however daughter states that for course can never be completed due to "drops in numbers" - Consult to oncology for appropriate anticoagulation, currently receiving heparin 25,000 units. Agree with heparin for anticoagulation, state that patient can tolerate eliquis upon discharge. (4) Multiple myeloma Current Visit: No Status: Chronic Assessment and plan: - Status post bone marrow transplant - Patient instructed to follow up with oncologist, Dr. Alvarado as outpatient for further treatment Qualifiers: Multiple myeloma remission status: in remission Qualified Code(s): C90.01 - Multiple myeloma in remission (5) Hypomagnesemia Current Visit: Yes Status: Acute Assessment and plan: - K this AM was 3.0, replenishing - Mg was 1.0, will give 4 mg IV - Will recheck in AM - Time Spent With Patient Greater than 35 minutes - Subjective Interval history: Patient was seen and examined at bedside this morning. Patient states that her SOB has improved since yesterday and she is happy with her 3 kg weight loss. She states her LE swelling has greatly improved. Cardiology stopped by and told her that her [facility] was scheduled for today around lunch. PT/OT evaluated and will visit again tomorrow. Patient continues to deny symptoms of cough, fevers, chills, n/v, abdominal pain, urinary symptoms. - Constitutional Vitals: Temp Pulse Resp BP Pulse Ox 97.9 F 117 16 107/57 96 04/07/17 07:20 04/07/17 07:20 04/07/17 07:20 04/07/17 07:20 04/07/17 08:50 General appearance: Present: mild distress, A&O X 3, pleasant, answers questions appropriately Exam: Gen.: Vitals noted. No acute distress. AAOx3. Sitting comfortably in chair, speaking in full sentences HEENT: PERRL, oropharynx clear, moist mucous membranes Normocephalic, atraumatic Neck: Supple. No adenopathy. Cardiac: RRR, no murmur, +S1/S2 Pulmonary: Mild Rales diffusely improved since yesterday. Decreased sounds in the left lower lobe., equal chest expansion Abdomen: soft, nontender, BS noted, no guarding Back: Nontender throughout. MSK: ROM intact, no joint swelling noted Extremities: no BLE edema, nontender calf, no cyanosis or clubbing Neuro: A&Ox3, moves all extremities, no focal deficits Psych: Appropriate mood and behavior Internal Medicine: Result - Labs CBC & Chem 7: 04/07/17 04:04 04/07/17 01:18 Labs: Short CBC 04/07/17 Range/Units 04:04 WBC 8.0 D (4.3-11.1) K/mcL Hgb 8.2 L (11.5-15.4) g/dL Hct 25.1 L (35.3-44.9) % Plt Count 151 (140-400) K/mcL [facility] 04/07/17 01:18 Sodium 134 L Potassium 3.0 L Chloride 95 L Carbon Dioxide 30 H BUN 11 Creatinine 0.69 Glucose 167 H Calcium 7.8 L - ABG Interpretation ABG results: PT/INR, D-dimer PT 12.3 Seconds (9.4-12.1) H 04/06/17 04:57 - VTE Documentation of Mechanical Device: Intermittent pneumatic compression device Consult Discharge Plan - Plan Referrals: Dayanara Solano, [employer]OLRO[employer] ATTENDANT [Primary Care Provider] - (web request) <Monty Hubbard - Last Filed: 04/07/17 17:00> Date of Encounter: 04/07/17 - Constitutional Vitals: Temp Pulse Resp BP Pulse Ox 97.9 F 109 22 111/68 96 04/07/17 11:16 04/07/17 11:16 04/07/17 11:16 04/07/17 11:16 04/07/17 13:24 Internal Medicine: Result - Labs CBC & Chem 7: 04/07/17 04:04 04/07/17 01:18 Labs: Short CBC 04/07/17 Range/Units 04:04 WBC 8.0 D (4.3-11.1) K/mcL Hgb 8.2 L (11.5-15.4) g/dL Hct 25.1 L (35.3-44.9) % Plt Count 151 (140-400) K/mcL [facility] 04/07/17 01:18 Sodium 134 L Potassium 3.0 L Chloride 95 L Carbon Dioxide 30 H BUN 11 Creatinine 0.69 Glucose 167 H Calcium 7.8 L - ABG Interpretation ABG results: PT/INR, D-dimer PT 12.3 Seconds (9.4-12.1) H 04/06/17 04:57 - Attending Attestation I examined this patient and my medical decision-making was reviewed with the Resident Physician on 04/07/17. I agree with the documented findings, disposition and treatment plan as described except to the extent set forth below. Seen and evaluated at bedside with family 61 F with acute CHFrEF, with EF 35%, acute hypoxic resp failure secondary to this She has a PMH of MM s/p transplant, and also has DVT Has no new complains at time of eval, losing weight, I/O -3L, kidney function acceptable Cardiology and Oncology recommendations noted Physical [id number], regular, not in distress, alopecia, chest with decreased breath sounds bilaterally, heart S1, S2, regular, abdomen is benign and not tender, 1+ pedal edema, Labs and Imaging reviewed She is for [facility] today Continue other management, for eliquis for DVT upon discharge as recommended by Onc Rest of details as in resident's documentation
[2017-04-07] MEDS ORDERED: *HR* Heparin 10,000 UNIT/10 ML VIAL ONE (12:05)
[2017-04-07] MEDS ORDERED: Heparin 1,000 UNITS/500 mL NS 500 ML ONE (12:05)
[2017-04-07] MEDS ORDERED: 0.9 % Sodium Chloride 1,000 ML ONE ×2 (12:05→13:02)
[2017-04-07] MEDS ORDERED: Nitroglycerin 1,000 MCG/10 ML VIAL IV ONE (12:05)
[2017-04-07] MEDS: Magnesium Sulfate 2 GM in D5% in Water 100 ML IVPB SCH ×2 (12:18→13:48)
[2017-04-07] MEDS: Heparin 25,000 UNIT/500 ML D5W 25,000 UNIT/500 ML MLS IVC SCH (12:22)
[2017-04-07] MEDS ORDERED: *HR* Midazolam HCl 2 MG/2 ML VIAL ONE (13:02)
[2017-04-07] MEDS ORDERED: *HR* FentaNYL (PF) 100 MCG/2 ML VIAL ONE (13:02)
--- NOTE | 2017-04-07 13:03 | Pre-Sedation Evaluation ---
Pre-sedation evaluation - Pre-sedation checklist Date of procedure: 04/07/17 Procedure: Left Heart Cath Recent Vitals: Last Vital Signs Temp 97.9 F 04/07/17 11:16 Pulse 109 04/07/17 11:16 Resp 22 04/07/17 11:16 BP 111/68 04/07/17 11:16 Pulse Ox 98 04/07/17 11:16 H&P (including ROS) documented in medical record: Yes Previous reaction to sedatives/anesthetics: No Dietary Status: NPO after Midnight Airway Assessment: Patient can open mouth completely, TMJ function normal, Micrognathia (under-bite, receding chin) absent, Neck with adequate range of motion Dentition: dentures removed Possible difficult airway: No ASA Classification *see protocol: CLASS II-Mild systemic disease Plan of Care: Pt appropriate candidate for procedure/moderate/conscious sedation , Risks/benefits of procedure/sedation discussed w/ patient/family
[2017-04-07] MEDS ORDERED: *HR* Ticagrelor 90 MG TABLET ONE (13:46)
--- NOTE | 2017-04-07 15:06 | Invasive Diagnostic Lab ---
Name: Linsey Saul Date of Study: 04/07/2017 Date: 1955 Ht: 154.9 cm /61.0 in Medical Record#: [id number] Age: 61 Wt: 68.6 kg / 151.24 lb Account/Order#: [id number] Gender: Female BSA: 1.68 Order #: [id number] Fluoro Dose: 742 mGy BMI: 28.59 Procedure Physician: Daiana Lawler MD, [facility] Referring MD: Referring MD: Procedures Performed: LEFT HEART CATH Stent w/ PTCA Single Major Vessel Stent w/ PTCA Single Major Vessel Indications: Cardiomyopathy Impressions: Triple vessel coronary artery disease. Moderately severe global LV dysfunction. EF 35% Successful PCI of prox/mid LAD and mid RCA with MATILDE. Recommendations: DAPT for one year minimum uninterrupted. Optimal medical therapy of patient's disease. Aggressive risk factor modification. History/Risk Factors: multiple myeloma DVT bone marrow transplant b/l UE DVT B/L pleural effusion Rt Jugular vein thrombus Diabetes Dyslipidemia CHF Procedure Access obtained in the right Femoral artery by percutaneous puncture Patient had successful PTCA/Drug-Eluting Stent placement in the mid RCA and prox LAD. Complications: None, None Contrast: Isovue 196ml Hemodynamics: Pressures Site Systolic/ A Wave Diastolic/ V Wave End Diastolic/ Mean HR AO 87 65 76 104 AO 90 70 80 101 LV 87 24 28 101 LV 167 86 142 102 AO 92 71 81 100 AO 97 52 72 94 LV Ventriculography Ejection Method: LV Gram Ejection Fraction: 35% Wall Motion: POPE Anterobasal Severe Hypokinesis Anterolateral Severe Hypokinesis Apical: Severe Hypokinesis Inferoapical Severe Hypokinesis Inferobasal Severe Hypokinesis Coronary Dominance: right Lesion Findings/Interventions * Left Main Coronary Artery There is a 25% stenosis in the LMCA. * Left Anterior Descending There is a 38 mm long, 90% stenosis in the Proximal LAD. The lesion has a COLTEN flow of 3. An intervention was performed on the Proximal LAD with a final stenosis of 0%. There were no lesion complications. The final COLTEN flow was 3. There is a 80% stenosis in the Mid LAD- PCI to 0%. There is a 30% stenosis in the Distal LAD. There is a 99% stenosis in the 1st Diagonal- very small vessel. * Circumflex There is a 30% stenosis in the Proximal Circumflex. There is a 60% stenosis in the Mid Circumflex. * Ramus There is a 30% stenosis in the Ramus. * Right Coronary Artery There is a 30% stenosis in the Proximal RCA. There is a 16 mm long, 99% stenosis in the Mid RCA. The lesion has a COLTEN flow of 3. An intervention was performed on the Mid RCA with a final stenosis of 0%. There were no lesion complications. The final COLTEN flow was 3. Interventional Device(s) Vessel Segment Type Name Diameter (mm) Length (mm) Proximal LAD balloon Emerge Monorail 2 15 Proximal LAD drug-eluting stent Synergy 2.75 38 Mid RCA balloon Emerge Monorail 2 8 Mid RCA drug-eluting stent Synergy 2.5 16 Updated by Daiana Lawler MD, FACC on 04/07/2017 2:59:24 PM Daiana Lawler MD, FACC electronically signed on 04/07/2017 3:00:27 PM with status of Final
[2017-04-07] MEDS: *HR* OxyCODONE Immed Rel 5 MG TABLET PO PRN ×3 (16:37→22:37)
--- NOTE | 2017-04-07 17:16 | Venous Imaging Report ---
UE Venous Duplex Patient Name:Linsey Saul Order Number:[id number] Procedure Date:04/06/2017 Date:1955ge:61 yrs Gender:Female Location:[facility] Room #: 2A35 Director Of Radiology:Benitez Grey RDCS Referring MD:Jareth Najera DO supervisor small appliance assembly:Dayanara Solano, TIME STUDY OBSERVER Reading MD:Alexei Hoffmann MD Primary Indications:R/O DVT Secondary Indications: Risk Factors Yes/No Hx of Chemotherapy Yes Anticoagulants Yes Hx of Superficial Phlebitis Yes Impressions: Acute deep venous thrombosis is present in the right brachial vein. Acute superficial venous thrombosis is present in the right cephalic vein. Acute deep venous thrombosis is present in the left jugular and brachial veins. Acute superficial venous thrombosis is present in the left cephalic vein. Recommendations: After imaging the patient returned to their room. Critical findings reported to [facility] by phone by Benitez Grey RDCS. Findings Venous Duplex Results: Right: Venous imaging of the upper extremity reveals full patency and normal vessel compressibility of the right jugular, right subclavian, right axillary, right basilic, right radial and right ulnar. Doppler signals in the evaluated veins were normal. There is an acute occlusive thrombus seen in the right brachial. It demonstrates an incompressible vein. Flow was absent and it did not augment. There is an acute occlusive thrombus seen in the right cephalic. It demonstrates an incompressible vein. Flow was absent and it did not augment. Left: Venous imaging of the upper extremity reveals full patency and normal vessel compressibility of the left subclavian, left axillary, left basilic, left radial and left ulnar. Doppler signals in the evaluated veins were normal. There is an acute occlusive thrombus seen in the left jugular. It demonstrates an incompressible vein. Flow was absent and it did not augment. There is an acute occlusive thrombus seen in the left brachial. It demonstrates an incompressible vein. Flow was absent and it did not augment. There is an acute occlusive thrombus seen in the left cephalic. It demonstrates an incompressible vein. Flow was absent and it did not augment. Upper Extremity Venous Duplex Side Vein Compress Spontaneous Flow Augment Right Jugular Normal Yes Phasic Yes Right Subclavian Normal Yes Phasic Yes Right Axillary Normal Yes Phasic Yes Right Brachial None no Absent no Right Cephalic None no Absent no Right Basilic Normal Yes Phasic Yes Right Radial Normal Yes Phasic Yes Right Ulnar Normal Yes Phasic Yes Left Jugular None no Absent no Left Subclavian Normal Yes Phasic Yes Left Axillary Normal Yes Phasic Yes Left Brachial None no Absent no Left Cephalic None no Absent no Left Basilic Normal Yes Phasic Yes Left Radial Normal Yes Phasic Yes Left Ulnar Normal Yes Phasic Yes Updated by Alexei Hoffmann MD on 04/07/2017 5:11:58 PM electronically signed on 04/07/2017 5:12:18 PM with status of Final
--- NOTE | 2017-04-07 17:20 | Venous Imaging Report ---
LE Venous Duplex Patient Name:Linsey Saul Order Number:[id number] Procedure Date:04/06/2017 Date:1955ge:61 yrs Gender:Female Location:[facility] Room #: 2A35 Packer:Denise Michael Referring MD:Jareth Najera DO harpoon engagement planning operator:Dayanara Solano, FURNITURE MECHANIC Reading MD:Alexei Hoffmann MD Primary Indications:Edema Secondary Indications: Risk Factors Yes/No Hx of DVT Anticoagulants Hx of Chemotherapy Impressions: Normal bilateral lower extremity deep and superficial venous exam. Findings Prior Study: No prior study available for comparison. Lower Extremity Venous Duplex Side Vein Compress Spontaneous Flow Augment Diameter (cm) Depth (cm) Right Distal Iliac Normal Yes Phasic Yes Right Common Femoral Normal Yes Phasic Yes Right Superficial Femoral Normal Yes Phasic Yes Right Popliteal Normal Yes Phasic Yes Right Posterior Tibial Normal Yes Phasic Yes Right Peroneal Normal Yes Phasic Yes Right Saphenofemoral [place] Normal Yes Phasic Yes Right Great Saphenous Normal Yes Phasic Yes Right Lesser Saphenous Normal Yes Phasic Yes Left Distal Iliac Normal Yes Phasic Yes Left Common Femoral Normal Yes Phasic Yes Left Superficial Femoral Normal Yes Phasic Yes Left Popliteal Normal Yes Phasic Yes Left Posterior Tibial Normal Yes Phasic Yes Left Peroneal Normal Yes Phasic Yes Left Saphenofemoral [place] Normal Yes Phasic Yes Left Great Saphenous Normal Yes Phasic Yes Left Lesser Saphenous Normal Yes Phasic Yes Updated by Alexei Hoffmann MD on 04/07/2017 5:12:59 PM electronically signed on 04/07/2017 5:13:47 PM with status of Final
--- NOTE | 2017-04-07 17:23 | Invasive Diagnostic Lab Proc ---
Name: Linsey Saul Date of Study: 04/07/2017 Date: 1955 Ht: 61.0in Medical Record#: [id number] Age: 61 Wt: 151.24lb Gender: Female BSA: 1.68 Order #: [id number] BMI: 28.59 Physicians Procedure Physician: Daiana Lawler MD, [facility] Referring MD: Referring MD: Staff Name Position Time In Marlene Mcginnis RT Monitor 01:08 PM Tammy Grissom RN Imaging Specialist 01:09 PM Jerry Diaz RT (R) Scrub 01:09 PM Indications Indication Cardiomyopathy Procedures Performed Procedure L HRT ARTERY/VENTRICLE ANGIO PRQ CARD MATILDE STENT W/ANGIO 1 VSL PRQ CARD MATILDE STENT W/ANGIO 1 VSL Pre-Procedure Checklist Informed consent is complete signed and on chart. H\\T\\P is on chart. ID band is on and ID verified with patient. Patient NPO for procedure The procedure was described for the patient and questions were answered. ECG is on chart. Plan of Care Patient will tolerate the procedure without complications. Adequate level of comfort will be maintained. Hemodynamics will remain stable Patient will recover from procedure without complications. Respiratory function will be maintained. Cardiac rhythm will remain stable. Patient temperature will be maintained. Patient and/or family have verbalized understanding of the procedure. Patient Education Chief Complaint/Reason for Test: Cardiac Cath Developmental Category: Adult (18-64 years) Developmentally Appropriate for Age: Yes Learning Barriers: None Education Needs: Procedure Education Method: Verbal Information Taught: Cardiac Cath Educational Evaluation: Able to repeat information Intravenous Access Time IV Size Location DC'd Fluid/Drip Rate Units RN 20g 1 10/01" Patent On Arrival Lt Antecubital Allergies No Known Allergies Vital Signs Time BP (mmHg) HR (bpm) O2 Sat. RR (bpm) LOC 111 / 68 109 98 % 22 5 = Fully awake and oriented or at pre-proc level 01:10 PM / % 5 = Fully awake and oriented or at pre-proc level 01:10 PM / % 4 = Oriented but drowsy 01:25 PM / % 4 = Oriented but drowsy 01:40 PM / % 4 = Oriented but drowsy 01:08 PM 139 / 62 107 96 % 15 01:11 PM 122 / 47 105 92 % 19 01:14 PM 115 / 49 104 93 % 20 01:17 PM 121 / 53 103 97 % 18 01:20 PM 121 / 47 99 98 % 18 01:23 PM 128 / 57 101 98 % 19 01:26 PM 126 / 51 105 98 % 19 01:29 PM 119 / 48 102 98 % 18 01:32 PM 124 / 58 104 97 % 18 01:35 PM 113 / 47 105 97 % 18 01:38 PM 125 / 56 84 97 % 18 01:41 PM 116 / 60 84 97 % 18 01:44 PM 117 / 50 83 95 % 18 01:47 PM 119 / 50 104 97 % 19 01:50 PM 121 / 53 103 97 % 20 01:53 PM 122 / 61 100 98 % 19 01:56 PM 116 / 49 103 96 % 19 02:18 PM 132 / 55 103 97 % 18 5 = Fully awake and oriented or at pre-proc level 02:45 PM 127 / 78 100 96 % 21 5 = Fully awake and oriented or at pre-proc level 03:03 PM 125 / 63 103 99 % 19 5 = Fully awake and oriented or at pre-proc level 03:17 PM 129 / 47 104 99 % 18 5 = Fully awake and oriented or at pre-proc level 03:30 PM 129 / 47 102 98 % 21 5 = Fully awake and oriented or at pre-proc level 03:45 PM 118 / 45 101 100 % 18 5 = Fully awake and oriented or at pre-proc level 04:00 PM 112 / 49 104 99 % 19 5 = Fully awake and oriented or at pre-proc level 04:33 PM 106 / 48 102 97 % 18 5 = Fully awake and oriented or at pre-proc level 04:45 PM 106 / 48 102 99 % 14 5 = Fully awake and oriented or at pre-proc level 04:55 PM 108 / 50 100 98 % 15 5 = Fully awake and oriented or at pre-proc level 05:14 PM 128 / 68 103 97 % 19 5 = Fully awake and oriented or at pre-proc level Procedural Medications Time Medication Dose Units Method Given By 01:09 PM Oxygen 2 L/min nasal cannula Tammy Grissom RN 01:09 PM Versed 2 mg Intravenous Tammy Grissom RN 01:09 PM Fentanyl 50 mcg Intravenous Tammy Grissom RN 01:10 PM Oxygen 4 L/min nasal cannula Tammy Grissom RN 01:11 PM Oxygen 6 L/min nasal cannula Tammy Grissom RN 01:14 PM Oxygen 6 L/min Oxymask Tammy Grissom RN 01:15 PM Lidocaine 2% 16 ml Subcutaneous Daiana Lawler MD, FAC 01:31 PM Heparin 3000 units Intravenous Tammy Grissom RN 01:41 PM Nitroglycerin 200 mcg Intracoronary Daiana Lawler MD, FAC 01:47 PM Heparin 1000 units Intravenous Tammy Grissom RN 01:53 PM Nitroglycerin 200 mcg Intracoronary Daiana Lawler MD, FAC 01:57 PM Brilinta 180 mg Orally Tammy Grissom RN 04:25 PM oxycodone 5 mg Orally Florinda Coker RN ASA Classification: CLASS II- Mild systemic disease (i.e. well-controlled diabetes, hypertension, asthma, cigarette smoking) Peyman Score Preprocedure Postprocedure Activity 2- Moves 4 extremities sustained head lift Activity 2- Moves 4 extremities sustained head lift Circulation 2- SBP +/= 20 points of pre-anesthetic level Circulation 2- SBP +/= 20 points of pre-anesthetic level Consciousness 2- Awake and alert oriented x 3 Consciousness 2- Awake and alert oriented x 3 O2 Saturation 2- Able to maintain O2 satruation of 92% on room air O2 Saturation 2- Able to maintain O2 satruation of 92% on room air Respiratory 2- Able to deep breathe and cough well Respiratory 2- Able to deep breathe and cough well Total Score 10 Total Score 10 Contrast Agent: Isovue Diagnostic Contrast: 196 ml Total Contrast: 196 ml Fluoro Dose: 742 mGy Activated Clotting Time Time Seconds to Clot 01:30 PM 160 01:47 PM 224 03:18 PM 199 04:00 PM 189 04:55 PM 164 Procedure Log Time Note Enter By 01:07 PM CathStat 01:07 PM Vitals capture started with the following parameters, Patient=Adult, Interval=3 min, Initial Dvpqhmab=594 mmHg, Deflation Rate=5 mmHg, Cuff placed on Right Arm 01:08 PM YK=775 bpm, OHGV=004/62 mmhg, SpO2=96 %, Resp=15 B/min 01:08 PM Pt arrived to analytical lab analyst 2 at 13:08 [email or web address] 01:09 PM Marlene Mcginnis RT Position: Monitor Time in: 13:08 [email or web address] 01:09 PM Tammy Grissom RN Position: Imaging Specialist Time in: 13: [email or web address] 01:09 PM Jerry Diaz RT (R) Position: Scrub Time in: 13:: PM Patient charges- Angio tray pack, Navilyst 3mm J, Pulse Oximetry and ACIST tubing and transducer PM Case Delayed No PM Hair removed from procedure site in procedure lab using clippers. Bilateral groin prepped with Chloraprep by Marlene Mcginnis, safety strap applied then patient was draped. Skin intact. : Physician arrived 13: PM ASA Class CLASS II- Mild systemic disease (i.e. well-controlled diabetes, hypertension, asthma, cigarette smoking) : Meet and greet completed PM Sign in performed according to hospital policy. PM Procedure start : PM Time: 13:09 Oxygen on at 2 L/min per nasal cannula by Tammy Grissom RN yeny PM Time: 13:09 Versed 2 mg Intravenous Given by Tammy Grissom RN PM Time: 13:09 Fentanyl 50 mcg Intravenous Given by Tammy Grissom RN yeny PM Time: 13:10 Patient comfortable and pain free: Yes Time: 13:10LOC: 5 = Fully awake and oriented or at pre-proc level :10 PM Clinical Presentation: Non-STEMI :10 PM Time: 13:10 Oxygen on at 4 L/min per nasal cannula by Tammy Grissom RN yeny : PM CG=180 bpm, VABO=870/47 mmhg, SpO2=92 %, Resp=19 B/min 01:11 PM Pressure channel 1 zeroed. 01:11 PM Time: 13:11 Oxygen on at 6 L/min per nasal cannula by Tammy Grissom RN rafa PM Time out performed according to hospital policy :14 PM TR=292 bpm, FFWZ=659/49 mmhg, SpO2=93.0 %, Resp=20 B/min 01:14 PM Time: 13:14 Oxygen on at 6 L/min per Oxymask by Tammy Grissom RN yeny :15 PM Time: 13:15 16 ml Lidocaine 2% to right groin Subcutaneous Given by Daiana Lawler MD, [facility] [email or web address] 01:15 PM Access obtained by percutaneous puncture. 5Fr 10cm Terumo Ulman sheath placed in right Femoral artery. [id number] [email or web address] 01:15 PM 5Fr FL 4 catheter inserted over the wire [facility] kkallner 01:16 PM wire removed [email or web address] 01:17 PM JS=154 bpm, BJLQ=847/53 mmhg, SpO2=97.0 %, Resp=18 B/min 01:17 PM Recorded Pressure: Ao, QW=552, Condition=Condition 1 (Aorta) Ao 87/65/76 01:18 PM LCA angiography performed in multiple views. [email or web address] 01:18 PM Catheter removed 01:18 PM 5Fr FR 4 catheter inserted over the wire [facility] kkner 01:18 PM wire removed kkner 01:19 PM RCA angiography performed in multiple views. [email or web address] 01:19 PM Recorded Pressure: Ao, CE=501, Condition=Condition 1 (Aorta) Ao 90/70/80 01:20 PM HR=99 bpm, KLRI=526/47 mmhg, SpO2=98.0 %, Resp=18 B/min 01:20 PM Catheter removed kkner 01:20 PM 5Fr Pigtail catheter inserted over the wire [facility] 01:20 PM Catheter selectively placed in left ventricle [email or web address] 01:21 PM Pressure channel 1 zero failed. 01:21 PM Pressure channel 1 zeroed. 01:21 PM Bolus angiogram of left Ventricle complete: 8 ml/sec for a total of 24 mls kkallner :21 PM Recorded Pressure: LV, GD=867, Condition=Condition 1 (Left Ventricle) LV 87/24/28 01:21 PM Recorded Pressure: LV, Ao, SB=258, Condition=Condition 1 (Left Ventricle) LV 167/86/142, (Aorta) Ao 92/71/81 01:22 PM Catheter removed [email or web address] 01:23 PM YV=142 bpm, NPSL=098/57 mmhg, SpO2=98.0 %, Resp=19 B/min 01:25 PM Time: 13:10 Patient comfortable and pain free: Yes all:25 PM Time: 13:10LOC: 4 = Oriented but drowsy [email or web address] 01:26 PM AC=990 bpm, WDFX=027/51 mmhg, SpO2=98.0 %, Resp=19 B/min 01:27 PM Sheath exchanged for a 6 Fr 11 cm TerumTrekea Ulman sheath [id number] kkallner :27 PM Lesion found in Proximal LAD. Pre Stenosis: 90 Pre COLTEN Flow: [email or web address] :27 PM Lesion found in Mid LAD. Pre Stenosis: 80 Pre COLTEN Flow: [email or web address] 01:28 PM 6Fr XB LAD 3.5 [place] Bright-Tip guide catheter was used to cannulate the PCI vessel successfully. reused? No kkallner 01:28 PM wire removed kkallner 01:29 PM PK=221 bpm, FENI=574/48 mmhg, SpO2=98.0 %, Resp=18 B/min, Comment=st 01:30 PM .014 Prowater 180cm guide wire across target lesion- successful. reused? No [email or web address] 01:30 PM At 13:30 the ACT was 160 seconds. [email or web address] 01:31 PM Time: 13:31 Heparin 3000 units Intravenous Given by Tammy Grissom RN allner 01:32 PM ZQ=913 bpm, URGM=569/58 mmhg, SpO2=97.0 %, Resp=18 B/min, Comment=st 01:33 PM 2.0 mm x 15 mm Emerge Monorail balloon across target lesion- successful. reused? No LAD kkallner 01:34 PM Recorded Pressure: Ao, HR=94, Condition=Condition 1 (Aorta) Ao 97/52/72 01:35 PM UB=925 bpm, TSRG=511/47 mmhg, SpO2=97.0 %, Resp=18 B/min 01:35 PM Balloon inflated @ 10 norman for 20 seconds [email or web address] 01:35 PM Balloon inflated @ 10 norman for 20 seconds kkallner 01:36 PM Balloon inflated @ 12 norman for 20 seconds kkallner 01:37 PM Balloon catheter removed intact. [email or web address] 01:38 PM HR=84 bpm, COMF=644/56 mmhg, SpO2=97.0 %, Resp=18 B/min 01:38 PM 2.75mm x 38mm Synergy drug-eluting stent across target lesion- successful Lot #[id number] LAD kkallner 01:39 PM Stent deployed @ 12 norman for 30 seconds [email or web address] 01:40 PM Time: 13:25LOC: 4 = Oriented but drowsy kkallner 01:40 PM Time: 13:25 Patient comfortable and pain free: Yes kkallner 01:40 PM Stent delivery system removed intact. [email or web address] 01:41 PM HR=84 bpm, VJAQ=017/60 mmhg, SpO2=97.0 %, Resp=18 B/min 01:41 PM Time: 13:41 Nitroglycerin 200 mcg Intracoronary Given by Daiana Lawler MD, [facility] kkallner 01:42 PM prowater removed kkallner 01:42 PM Guide catheter removed intact. [email or web address] 01:44 PM HR=83 bpm, RMJF=136/50 mmhg, SpO2=95.0 %, Resp=18 B/min, Comment=st 01:44 PM 6Fr JR 4 Runway guide catheter was used to cannulate the PCI vessel successfully. reused? No kkallner 01:45 PM wire removed kkallner 01:45 PM prowater reinserted kkallner 01:46 PM Lesion found in Mid RCA. Pre Stenosis: 99 Pre COLTEN Flow: allner 01:47 PM 2.0 mm x 8 mm Emerge Monorail balloon across target lesion- successful. reused? No RCA kkallner 01:47 PM LF=586 bpm, MSFR=083/50 mmhg, SpO2=97.0 %, Resp=19 B/min 01:47 PM At 13:47 the ACT was 224 seconds. [email or web address] 01:47 PM Time: 13:47 Heparin 1000 units Intravenous Given by Tammy Grissom RN kkallner 01:49 PM Balloon inflated @ 12 norman for 30 seconds kkallner 01:49 PM Balloon catheter removed intact. [email or web address] 01:50 PM DT=759 bpm, AVGI=381/53 mmhg, SpO2=97.0 %, Resp=20 B/min, Comment=st 01:50 PM 2.5mm x 16mm Synergy drug-eluting stent across target lesion- successful Lot #[id number] RCA kkallner 01:52 PM Stent deployed @ 12 norman for 30 seconds RCA kkallner 01:52 PM Stent balloon reinflated @ 18 norman for 15 seconds [email or web address] 01:53 PM MZ=076 bpm, FFPT=633/61 mmhg, SpO2=98.0 %, Resp=19 B/min 01:53 PM Stent delivery system removed intact. [email or web address] 01:53 PM Time: 13:53 Nitroglycerin 200 mcg Intracoronary Given by Daiana Lawler MD, FACC :54 PM wire removed :55 PM Guide catheter removed intact. :55 PM Time: 13:40LOC: 4 = Oriented but drowsy :55 PM Time: 13:40 Patient comfortable and pain free: Yes :55 PM Bolus angiogram of right Femoral complete: 4 ml/sec for a total of 7 mls :56 PM KQ=254 bpm, UAZC=183/49 mmhg, SpO2=96.0 %, Resp=19 B/min 01:57 PM Procedure completed at 13:57 kk:57 PM Sign out completed: Radiation Dose 741.95 mGy Fluoro Time: 9.4 Isovue 370 - 200ml contrast 196 ml given by Daiana Lawler MD, FAC. Complications: NoneCardiac Rehab Consult needed: YesConfirmed administered medications: Yes :57 PM Time: 13:57 Brilinta 180 mg Orally Given by Tammy Grissom RN :58 PM Isovue 370 - 200ml,1 Bottle(s) used. kkall:58 PM Sheath left in place to be pulled on floor/holding area kkall:58 PM Post ECG Sinus Tachycardia kkall:59 PM Post Blood Pressure 116/49 kkallner :59 PM Information taught Cardiac Cath and [employer] DEVELOPMENT MANAGER/Stent kkallner :59 PM Education needs Procedure, Plan of Care, and Responsibilities of Patient in Care kkall:59 PM Learning barriers :None kkallner :59 PM Education Methods Verbal kkallner :59 PM Education evaluation Able to repeat information [email or web address] 02:00 PM Site status No bleeding/hematoma - Rt Groin as reported by Jerry Diaz RT (R) at 14:00 kkallner 02:00 PM Opsite applied kkallner 02:00 PM Report given to Florinda HOPKINS Pt taken to Holding room Room #3. 14:00 [email or web address] 02:00 PM Plavix, Effient or Brilinta given Yes kkallner 02:01 PM Delay to floor No [email or web address] 02:01 PM Patient out of room: 14:01 [email or web address] 02:02 PM Family placed in consult room. [email or web address] 02:02 PM Complications: None kkallner 02:02 PM Fluoro Time: 9.4 [email or web address] 02:02 PM Isovue 370 - 200ml contrast 196 ml given by Daiana Lawler MD, [facility]. [email or web address] 02:03 PM Radiation Dose 741.95 mGy kkallner 02:03 PM Coronary Dominance: right [email or web address] 02:03 PM Lesion found in LMCA. Pre Stenosis: 25 Pre COLTEN Flow: [email or web address] 02:04 PM Lesion found in Distal LAD. Pre Stenosis: 30 Pre COLTEN Flow: [email or web address] 02:04 PM Lesion found in 1st Diagonal. Pre Stenosis: 99 Pre COLTEN Flow: kkallner 02:04 PM Lesion found in Proximal Circumflex. Pre Stenosis: 30 Pre COLTEN Flow: kkallner 02:04 PM Lesion found in Mid Circumflex. Pre Stenosis: 60 Pre COLTEN Flow: kkallner 02:05 PM Lesion found in Ramus. Pre Stenosis: 30 Pre COLTEN Flow: kkallner 02:05 PM Lesion found in Proximal RCA. Pre Stenosis: 30 Pre COLTEN Flow: kkallner 02:05 PM Left Main Coronary Artery with 25% stenosis [email or web address] 02:05 PM Proximal Left Anterior Descending Coronary Artery with 90% stenosis. If graft is supplying this territory, 0 % stenosis. [email or web address] 02:05 PM Mid/Distal Left Anterior Descending Coronary Artery and diagonal branches with 99% stenosis. If graft is supplying this area, 0 % stenosis kkallner 02:05 PM Circumflex, Obtuse Marginal, Left Posterior Descending, and Left Posterolateral Coronary Arteries with 60 % stenosis. If graft is supplying this area, 0 % stenosis kkallner 02:05 PM Right Coronary, Right Posterior Descending Arteries with Right Posterolateral and Acute Marginal branches with 99 % stenosis. If graft is supplying this area, 0 % stenosis kkallner 02:06 PM Ramus with 30% stenosis. If graft is supplying this area, 0 % stenosis kkallner 04:25 PM patient c/o back pain 05/07. oxycodone 5mg given [email or web address] 04:35 PM Patient educated on Cardiac Rehab by Florinda Coker RN [email or web address] 04:56 PM Arterial sheath pulled using manual compression and V+ Pad for 15 minutes by Florinda Coker RN [email or web address] 05:14 PM Site status No bleeding/hematoma - Rt Groin as reported by Florinda Coker RN at 17:14 [email or web address] 05:15 PM Opsite applied [email or web address] 05:15 PM Report given to Jigar HOPKINS Pt taken to 2A Room #35. 17:15 [email or web address] 05:15 PM Patient out of room: 17:15 [email or web address] Complications Complication None None Hemodynamics Pressures Site Systolic/A Wave Diastolic/V Wave Mean AO 87 65 76 AO 90 70 80 LV 87 24 28 LV 167 86 142 AO 92 71 81 AO 97 52 72 Post Procedure Information Blood Pressure: 116/49 mmHg Rhythm: Sinus Tachycardia Post procedural instructions were given Site Checks Time Location Status Staff Sheath In? Note 01:59 PM Rt Groin No bleeding/hematoma Estrellita 02:00 PM Rt Groin No bleeding/hematoma Jerry Diaz RT (R) 02:18 PM Rt Groin No bleeding/ No Hematoma Tammy Grissom RN 02:30 PM Rt Groin No bleeding/ No Hematoma MargyTiana brownlee RT (R) 02:45 PM Rt Groin No bleeding/ No Hematoma Margy Elisa RT (R) 03:02 PM Rt Groin No bleeding/ No Hematoma Margy, Elisa RT (R) 03:16 PM Rt Groin No bleeding/ No Hematoma Margy, Elisa RT (R) Yes 03:30 PM Rt Groin No bleeding/ No Hematoma Margy, Elisa RT (R) Yes 03:45 PM Rt Groin No bleeding/ No Hematoma Margy Elisa RT (R) 04:00 PM Rt Groin No bleeding/hematoma Margy, Elisa RT (R) 04:33 PM Rt Groin No bleeding/ No Hematoma Florinda Coker RN 04:45 PM Rt Groin No bleeding/ No Hematoma Tiana Jilee RT (R) 04:54 PM Rt Groin No bleeding/ No Hematoma Margy, Elisa RT (R) 05:13 PM Rt Groin No bleeding/ No Hematoma Florinda Coker RN 05:14 PM Rt Groin No bleeding/hematoma Florinda Coker RN Pulses Time Site Pre-Procedure Post-Procedure Note 04/07/2017 3:05:00 PM Bilateral DP \\T\\ PT Doppler 04/07/2017 2:45:00 PM Bilateral DP \\T\\ PT Doppler 04/07/2017 3:17:00 PM Bilateral DP \\T\\ PT Doppler 04/07/2017 3:30:00 PM Bilateral DP \\T\\ PT Doppler 04/07/2017 3:45:00 PM Bilateral DP \\T\\ PT Doppler 04/07/2017 4:00:00 PM Bilateral DP \\T\\ PT Doppler 04/07/2017 4:33:00 PM Bilateral DP \\T\\ PT Doppler 04/07/2017 4:45:00 PM Bilateral DP \\T\\ PT Doppler 04/07/2017 4:54:00 PM Bilateral DP \\T\\ PT Doppler 04/07/2017 5:13:00 PM Bilateral DP \\T\\ PT Doppler Updated by RT Candi(R) on 04/07/2017 5:15:38 PM electronically signed on 04/07/2017 5:16:42 PM with status of Final
[2017-04-07] MEDS: *HR* LORazepam 0.5 MG TABLET PO PRN (22:37)
[2017-04-07] MEDS: Melatonin 3 MG TABLET PO PRN (22:37)
[2017-04-08] MEDS: Ipratropium/Albuterol Neb 3 ML IH SCH ×4 (04:28→22:29)
[2017-04-08 05:55] LABS: Basophils % 0.1 %; Eosinophils % 0.1 %; Hematocrit 25.3 % (35.3-44.9); Hemoglobin 8.6 g/dL (11.5-15.4); Immature Granulocytes % 0.7 % (0-4); Lymphocytes # 0.2 K/mcL (0.6-4.6); Mean Corpuscular Hemoglobin 32.1 pg (28.0-33.3); Mean Corpuscular Volume 94.4 fL (83.0-100.0); Mean Platelet Volume 9.4 fL (9.4-12.4); Monocytes # 0.9 K/mcL (0.0-1.3); Monocytes % 11.9 %; Neutrophils # 6.2 K/mcL (1.6-8.9); Nucleated Red Blood Cells 0.4 /100 WBC (0); Platelet Count 135 K/mcL (140-400); Red Blood Count 2.68 M/mcL (3.82-4.97); Red Cell Distribution Width 18.3 % (11.5-14.5); Segmented Neutrophils % 84.2 %
[2017-04-08 06:09] LABS: BUN/Creatinine Ratio 17 (6-26); Blood Urea Nitrogen 11 mg/dL (7-20); Calcium 7.5 mg/dL (8.6-10.8); Carbon Dioxide 34 mEq/L (19-29); Chloride 94 mEq/L (98-109); Glucose 130 mg/dL (70-99); Osmolality,Calculated 279 (280-300); Potassium 2.9 mEq/L (3.5-4.5); Sodium 134 mEq/L (136-145); eGFR For African Americans > 60 (> 60); eGFR For Non-African Americans > 60 (> 60)
[2017-04-08] MEDS ORDERED: Magnesium Sulfate 2 GM in D5% in Water 100 ML IVPB ONE ×3 (06:41→13:01)
--- NOTE | 2017-04-08 08:03 | Oncology Inp Progress Note ---
Date of Encounter: 04/08/17 Time of Encounter: 09:00 (1) Multiple myeloma Current Visit: No Status: Chronic Assessment and plan: s/p recent PBSCT at [facility]. She is not transfusion dependant and plt/Hgb have recovered since transplant s/p cath-on plavix/ASA and eliquis for ctheter associated thrombosis Hgb trend to be monitored Tx for Hgb <8, for SOB symptoms Ac pulm edema/fluid overload. Followed by cardiology, low EF, s/p cath/ intervention as necessary Rt IJ thrombus-new in CTA, had prior basilic vein thrombus rt upper ext. Plan of care d/w patient and family bedside. Qualifiers: Multiple myeloma remission status: in remission Qualified Code(s): C90.01 - Multiple myeloma in remission Oncology: Subj Interval history: s/p cardiac cath yesterday, without complaints this AM - Constitutional Vitals: Vital Signs Temp Pulse Pulse Resp BP Pulse Ox 04/08/17 04:38 96 04/08/17 02:35 97.6 F 97 16 118/72 96 04/08/17 00:01 98.0 F 97 14 110/68 96 04/07/17 23:15 103 130/68 04/07/17 21:10 14 98 04/07/17 21:05 105 125/71 04/07/17 20:05 105 124/68 04/07/17 19:06 98.2 F 107 18 126/70 98 04/07/17 18:40 104 18 114/64 97 04/07/17 18:10 105 18 143/79 97 04/07/17 18:07 106 18 144/77 98 04/07/17 17:45 106 18 136/75 96 04/07/17 17:30 98.0 F 103 103 20 129/70 97 04/07/17 13:24 96 04/07/17 11:16 97.9 F 109 22 111/68 98 04/07/17 10:40 18 97 04/07/17 08:50 96 Intake and Output 04/07/17 04/07/17 04/08/17 15:59 23:59 07:59 Intake Total 520 / 520 800 / 800 Output Total 1200 / 1200 2125 / 2125 150 / 150 Balance -680 / -680 -1325 / -1325 -150 / -150 Intake: IV Fluids 520 / 520 Heparin 25,000 UNIT/500 312 / 312 ML D5W 25,000 unit In 500 ml @ 12 UNIT/KG/HR 16.8 mls/hr IVC .Q24H ALYSSIA Rx#: [id number] Magnesium Sulfate 2 GM In 208 / 208 Dextrose 5% 100 ML @ 96. 296 mls/hr IVPB Q1H ALYSSIA Rx#:[id number] Oral 800 / 800 Output: Catheter 1200 / 1200 2125 / 2125 150 / 150 Other: Meal NPO at this time Dinner Percent of Meal Consumed 25% Weight 68.5 kg 71.214 kg 71.5 kg Blood Glucose* 226 160 Patient Weight 04/08/17 23:59 Weight 71.5 kg General appearance: average body habitus - Head Head exam: Present: atraumatic - Eye Eye exam: Present: sclera anicteric - Neck Neck exam: Present: normal inspection - Respiratory Respiratory exam: Present: CTAB - Extremities Exam Extremities exam: Present: normal capillary refill, normal inspection - Neurological Exam Neurological exam: Present: alert, oriented X3 - Psychiatric Psychiatric exam: Present: normal affect Oncology: Obj Data - Labs CBC & Chem 7: 04/08/17 05:23 04/08/17 05:23 Labs: Laboratory Results - last 24 hr 04/06/17 04/06/17 04/07/17 16:45 20:21 01:18 WBC RBC Hgb Hct MCV MCH MCHC RDW Plt Count MPV Immature Gran % Seg Neutrophils % Lymphocytes % Monocytes % Eosinophils % Basophils % Neutrophils # Lymphocytes # Monocytes # Eosinophils # Basophils # Nucleated RBCs/100 WBC APTT Heparin Anti-Xa, Unfract Sodium 134 L Potassium 3.0 L Chloride 95 L Carbon Dioxide 30 H BUN 11 Creatinine 0.69 Est GFR ( Amer) > 60 Est GFR (Non-Af Amer) > 60 BUN/Creatinine Ratio 16 Glucose 167 H POC Glucose 60 223 H Calculated Osmolality 281 Calcium 7.8 L Magnesium 1.0 L Specimen Rejected 04/07/17 04/07/17 04/07/17 01:18 08:41 11:23 WBC RBC Hgb Hct MCV MCH MCHC RDW Plt Count MPV Immature Gran % Seg Neutrophils % Lymphocytes % Monocytes % Eosinophils % Basophils % Neutrophils # Lymphocytes # Monocytes # Eosinophils # Basophils # Nucleated RBCs/100 WBC APTT 172.0 H* D Heparin Anti-Xa, Unfract 1.02 H* Sodium Potassium Chloride Carbon Dioxide BUN Creatinine Est GFR ( Amer) Est GFR (Non-Af Amer) BUN/Creatinine Ratio Glucose POC Glucose 226 H Calculated Osmolality Calcium Magnesium Specimen Rejected MCV Delta 04/07/17 04/08/17 04/08/17 17:41 05:23 05:23 WBC 7.4 RBC 2.68 L Hgb 8.6 L Hct 25.3 L MCV 94.4 MCH 32.1 MCHC 34.0 RDW 18.3 H Plt Count 135 L MPV 9.4 Immature Gran % 0.7 Seg Neutrophils % 84.2 Lymphocytes % 3.0 Monocytes % 11.9 Eosinophils % 0.1 Basophils % 0.1 Neutrophils # 6.2 Lymphocytes # 0.2 L Monocytes # 0.9 Eosinophils # 0.0 Basophils # 0.0 Nucleated RBCs/100 WBC 0.4 H APTT Heparin Anti-Xa, Unfract Sodium 134 L Potassium 2.9 L Chloride 94 L Carbon Dioxide 34 H BUN 11 Creatinine 0.64 Est GFR ( Amer) > 60 Est GFR (Non-Af Amer) > 60 BUN/Creatinine Ratio 17 Glucose 130 H POC Glucose 255 H Calculated Osmolality 279 L Calcium 7.5 L Magnesium Specimen Rejected - ABG Interpretation ABG results: PT/INR, D-dimer PT 12.3 Seconds (9.4-12.1) H 04/06/17 04:57 Consult Discharge Plan - Plan Referrals: Dayanara Solano, ANGEL [Primary Care Provider] - (web request)
[2017-04-08] MEDS: Famotidine 20 MG TABLET PO SCH ×2 (09:09→17:32)
[2017-04-08] MEDS: APIXABAN 5 MG TABLET PO SCH ×2 (09:10→22:21)
[2017-04-08] MEDS: Aspirin 81 MG TAB.CHEW PO SCH (09:10)
[2017-04-08] MEDS: Nicotine 21 MG PATCH.TD24 TD SCH (09:16)
[2017-04-08] MEDS: Furosemide 40 MG/4 ML VIAL IVP SCH (09:19)
[2017-04-08] MEDS: Insulin LISPRO 300 UNITS/3 ML VIAL SQ SCH ×4 (09:25→22:00)
--- NOTE | 2017-04-08 09:34 | Cardiology Progress Note ---
Date of Encounter: 04/08/17 Time of Encounter: 08:00 Assessment and Plan (1) Systolic congestive heart failure, NYHA class 3 Current Visit: Yes Status: Acute Per cardiology: -Echo 04/05/17 with LVEF 35%, moderate global LV systolic dysfunction with regional variations, indeterminate diastolic function, severe left atrial enlargement, moderate MR which may be underestimated, mild MR, mild LA, moderate pulmonary hypertension, apex, apical inferior, basal inferior, apical anterior, apical septal, mid inferior septal, apical lateral, and, mid anterior septal hinson hypokinetic, all other hinson with normal motion. -New cardiology with Echo at [facility] 01/28/17 with LVEF 62%. -Significant volume overload on admission with patient reporting gained 20 pounds of weight during recent hospital stay at [facility]. -Of note, cannot logger all round weigts at [place], due to patient lost weight during chemotherapy and then gained 20 pounds during recent hospital stay. -Mild bilateral pedal edema noted. Much improved from admission. -On lasix IV BID. -Net negative 5 liters since admission. -Patient with shortness of breath, requiring O2, improved today. -Recommend continuing diuresis, strict i/os. fluid restriction, and daily weights. (2) Cardiomyopathy Current Visit: Yes Status: Acute Per cardiology: -New cardiomyopathy with current LVEF 35%, previous 62% at [facility] 01/2017. -On beta carsno. -Bjorn inhibitor started today. -Will switch beta carson to toprol starting tomorrow morning. Qualifiers: Cardiomyopathy type: ischemic Qualified Code(s): I25.5 - Ischemic cardiomyopathy (3) CAD (coronary artery disease) Current Visit: Yes Status: Acute Per cardiology: -[facility] 04/07/17 with 25% stenosis left main, 90% proximal LAD with MATILDE placed, 80% mid LAD with PCI, 30% distal LAD, 99% diagonal 1, 30% proximal circumflex, 60% mid circumflex, 30% ramus, 30% proximal RCA, 99% mid RCA with MATILDE placed. -On asa, plavix, statin, and beta carson. -Right groin access site without hematoma or ecchymosis. Patient denies issues walking. -Patient denies chest pain. -Educated given regarding access site management. -Patient educated regarding dual anti-platelet therapy uninterrupted for at least one year. -Cardiology will sign off and will follow up in outpatient setting. Follow up set. -Patient educated on risk factor modification with dietary modifications, excercise, and tobacco cessation. Qualifiers: Coronary Disease-Associated Artery/Lesion type: sun'aq artery [place] vs. transplanted heart: sun'aq heart Associated angina: without angina Qualified Code(s): I25.10 - Atherosclerotic heart disease of sun'aq coronary artery without angina pectoris (4) Elevated troponin I level Current Visit: Yes Status: Acute Per cardiology: -Elevated troponin at 0.45, 0.52, 0.51, 0.46. -Troponins flat and adynamic in the setting of CHF, leukocytosis. -Patient denies chest pain. -ECG with no ischemic changes. -Echo as above. -LHC yesterday as above. -Cardiac rehab was consulted. (5) Leukocytosis Current Visit: Yes Status: Acute Per cardiology: -WBC today within normal limits. -WBC count previous in February 0.1, 0.5. -WBC at time of discharge at [facility] 9. -Afrebrile. -Management per primary service. -Can consider medina-cultures. Qualifiers: Leukocytosis type: unspecified Qualified Code(s): D72.829 - Elevated white blood cell count, unspecified (6) Multiple myeloma Current Visit: No Status: Chronic Per cardiology: -KNown multiple myeloma with recent stem cell transplant at [facility] 03/19/17. -Management per primary and oncology services. Qualifiers: Multiple myeloma remission status: in remission Qualified Code(s): C90.01 - Multiple myeloma in remission (7) Tachycardia Current Visit: Yes Status: Acute Per cardiology: -Patient with sinus tachycardia in the setting of CHF -At time of assessment average HR 102. -On beta carson. -Will continue to monitor in outpatient setting. (8) Tobacco abuse Current Visit: Yes Status: Acute Per cardiology: -KNown tobacco abuse. -Patient states she is quitting after leaving hospital. -Will continue to monitor in outpatient setting. Discussion w patient/family: The assessment and plan as outlined above was discussed with the patient and/or family members who expressed understanding and agreement. All questions were answered. Thank you for involving us in the care of your patient. Please call with any questions. Discussed and reviewed with . Subjective Principal diagnosis: Cardiomyopathy Interval history: Patient admitted with shortness of breath. Ef noted to be 35%. Patient underwent LHC yesterday with intervention to LAD and RCA. Patient states she is doing well today. Patient denies chest pain. Reports shortness of breath is improved today. Patient denies issues walking. Objective Vital Signs, Last 4 Hours Temp Pulse Resp BP Pulse Ox 04/08/17 09:06 98 F 113 18 132/78 99 General: Conversant, No Apparent Distress HEENT: Atraumatic, Normocephaly, Mucus Membranes Moist Neck: No JVD, Normal carotid pulses Cardiac: Normal S1 and S2, No Murmur, Other (Tachycardic) Lungs: Normal Breath Sounds, No Wheeze, Rales, Rhonchi Neuro: Alert and responsive, No focal deficits noted Abdomen: Soft, Non-Tender Skin: No rashes noted on visualized skin, Other (Right groin access site without hematoma or ecchymosis. ) Musculoskeletal: No Chest Wall Tenderness Extremities: No Clubbing, No Cyanosis, Normal Pulses, Other (Mild bilateral pedal edema, non-pitting. ) Results 04/08/17 05:23 04/08/17 05:23 Lab Results Active Medications Acetaminophen (Tylenol) 650 mg PO Q6HR PRN PRN Reason: Mild Pain (1-3) Stop: 10/05/17 10:43 Albuterol/Ipratropium (Duoneb) 3 ml IH [id number] ALYSSIA PRN Reason: Protocol Stop: 10/05/17 16:01 Last Admin: 04/08/17 04:28 Dose: Not Given Apixaban (Eliquis) 5 mg PO BID [facility] Stop: 10/08/17 09:01 Last Admin: 04/08/17 09:10 Dose: 5 mg Aspirin (Aspirin) 81 mg PO DAILY [facility] Stop: 10/06/17 09:01 Last Admin: 04/08/17 09:10 Dose: 81 mg Atorvastatin Calcium (Lipitor) 80 mg PO HS [facility] Stop: 10/07/17 14:18 Last Admin: 04/07/17 20:51 Dose: 80 mg Calcium Carbonate (Tums) 500 mg PO BID [facility] Stop: 10/05/17 21:01 Last Admin: 04/08/17 09:09 Dose: 500 mg Clopidogrel Bisulfate (Plavix) 75 mg PO DAILY [facility] Stop: 10/08/17 09:01 Last Admin: 04/08/17 09:09 Dose: 75 mg Dextrose/Water (Dextrose 50% (Syg)) 25 ml IVP AD PRN PRN Reason: Hypoglycemia Stop: 10/05/17 11:30 Docusate Sodium (Colace) 100 mg PO QAM ALYSSIA PRN Reason: Protocol Stop: 10/06/17 09:01 Last Admin: 04/08/17 09:09 Dose: 100 mg Famotidine (Pepcid) 20 mg PO 0730,1630 ALYSSIA PRN Reason: Protocol Stop: 10/06/17 16:31 Last Admin: 04/08/17 09:09 Dose: 20 mg Furosemide (Lasix) 40 mg PO BIDDIURETIC ALYSSIA Stop: 10/08/17 09:31 Glucagon (Glucagen) 1 mg IM ONCE PRN PRN Reason: Hypoglycemia Stop: 10/05/17 11:30 Glucose (Gluctose) 15 gm PO ONCE PRN PRN Reason: Hypoglycemia Stop: 10/05/17 11:30 Glucose (Gluctose) 30 gm PO ONCE PRN PRN Reason: Hypoglycemia Stop: 10/05/17 11:30 Dextrose (Dextrose 5%) 1,000 mls @ 100 mls/hr IVC .Q10H PRN PRN Reason: HYPOGLYCEMIA Stop: 10/05/17 11:30 Insulin Human Lispro (Humalog) 0 units SQ TIDAC [facility] PRN Reason: Protocol Stop: 10/05/17 11:31 Last Admin: 04/08/17 09:25 Dose: 6 units Insulin Human Lispro (Humalog) 0 units SQ HS [facility] PRN Reason: Protocol Stop: 10/05/17 21:01 Last Admin: 04/07/17 20:58 Dose: Not Given Lisinopril (Zestril) 2.5 mg PO DAILY ALYSSIA PRN Reason: Protocol Stop: 10/08/17 09:01 Last Admin: 04/08/17 09:10 Dose: 2.5 mg Lorazepam (Ativan) 0.5 mg PO HS PRN PRN Reason: Insomnia Stop: 10/05/17 17:40 Last Admin: 04/07/17 22:37 Dose: 0.5 mg Melatonin (Melatonin) 6 mg PO HS PRN PRN Reason: Sleep Stop: 10/06/17 21:01 Last Admin: 04/07/17 22:37 Dose: 6 mg Metoprolol Tartrate (Lopressor) 50 mg PO BID [facility] Stop: 10/07/17 21:01 Last Admin: 04/08/17 09:10 Dose: 50 mg Naloxone HCl (Narcan) 0.4 mg IVP Q2MIN PRN PRN Reason: Opioid Reversal Stop: 10/05/17 10:43 Nicotine (Nicoderm) 21 mg TD DAILY ALYSSIA PRN Reason: Protocol Stop: 10/05/17 11:46 Last Admin: 04/08/17 09:16 Dose: 21 mg Nitroglycerin (Nitroglycerin) 0.4 mg SL Q5MIN PRN PRN Reason: Chest Pain Stop: 10/05/17 10:56 Ondansetron HCl (Zofran) 4 mg IVP Q8HR PRN PRN Reason: Nausea And Vomiting Stop: 10/05/17 10:43 Oxycodone HCl (Roxicodone) 5 mg PO Q6HR PRN PRN Reason: Moderate to Severe Pain (4-10) Stop: 10/05/17 17:40 Last Admin: 04/07/17 22:37 Dose: 5 mg Laboratory Tests 04/08/17 04/08/17 05:23 05:23 WBC 7.4 Hgb 8.6 L Plt Count 135 L Potassium 2.9 L Creatinine 0.64 - Imaging and Cardiology Chest Xray: report reviewed Echo: report reviewed Cardiac cath: report reviewed - EKG Interpretation EKG results cardiology: other (Telemetry reviewed with average HR previous 12 hours noted to be 102, sinus tachycardia. PVCs noted.) - VTE Documentation of Mechanical Device: Intermittent pneumatic compression device Consult Discharge Plan - Plan Referrals: Dayanara Solano, [employer] OPERATOR HELPER [Primary Care Provider] - (web request)
[2017-04-08 09:53] LABS: Magnesium 1.5 mg/dL (1.6-2.6)
[2017-04-08] MEDS: Furosemide 40 MG TABLET PO SCH ×2 (10:07→17:32)
--- NOTE | 2017-04-08 10:30 | Internal Med Progress Note ---
<Mario Wilder - Last Filed: 04/08/17 15:44> Date of Encounter: 04/08/17 Time of Encounter: 10:28 - Assessment and plan (1) Congestive heart failure Current Visit: Yes Status: Acute Assessment and plan: - Patient has history of recurrent failure with reduced ejection fraction. Echocardiogram on 04/05/17 showed EF of 35%, moderate global left ventricular dysfunction, severe left atrial enlargement. This is a decrease since last echocardiogram in January 2017, EF at that time was 60% - BNP in emergency department was 1202 - Cardiology following, status post left heart catheterization with placement of 2 drug-eluting stents. - Patient's tachycardia is persisted after increasing dose metoprolol 50 mg twice a day. Will increase dose further 75 mg twice a day, and transition to extended release 75 mg in the morning. Blood pressure stable - We will continue aspirin, statin, Plavix , metoprolol. IV Lasix changed to by mouth - We will monitor strict I/Os. Total of -5 L since admission, -3 kg - Physical therapy and occupational therapy have seen and evaluated patient. They recommended continue physical therapy hospital stay home health at discharge. Patient was informed of this evaluation, however she and her family are declining home health upon discharge. She would instead like to set up outpatient physical therapy. Qualifiers: Congestive heart failure type: systolic Congestive heart failure chronicity : acute Qualified Code(s): I50.21 - Acute systolic (congestive) heart failure (2) Elevated troponin I level Current Visit: Yes Status: Acute Assessment and plan: - Troponin emergency department was 0.52, has down trended to 0.46 - Likely result of demand ischemia secondary to congestive heart failure exacerbation - Cardiology following, left heart catheterization performed yesterday 04/07, 2 drug-eluting stents were placed. Patient is stable and asymptomatic - Patient taking aspirin, metoprolol, plavix Per cardiology, plan to change beta carson tomorrow morning to Toprol (3) Elevated d-dimer Current Visit: Yes Status: Acute Assessment and plan: - D-dimer in the emergency department was 1295 - CTA revealed no pulmonary embolism, however it did reveal bilateral pleural effusions, thrombosis of right internal jugular vein - Ultrasound of the upper extremities revealed bilateral deep venous thrombosis. Ultrasound of lower extremities negative for DVT - Patient was placed in a eliquis 5 mg twice a day per cardiology after left heart catheterization. Heparin was discontinued yesterday prior to left heart catheterization - Consult to oncology agreed that eliquis was appropriate anticoagulation upon discharge. (4) Multiple myeloma Current Visit: No Status: Chronic Assessment and plan: - Status post bone marrow transplant - Patient instructed to follow up with oncologist, Dr. Alvarado as outpatient for further treatment Qualifiers: Multiple myeloma remission status: in remission Qualified Code(s): C90.01 - Multiple myeloma in remission (5) Hypomagnesemia Current Visit: Yes Status: Acute Assessment and plan: - K this AM was 2.9, replenishing with 60 mEq - Mg was 1.5, will give 4 mg IV - Will recheck in AM - Time Spent With Patient 25 - 35 minutes - Subjective Interval history: Patient was seen and examined at bedside this morning. She reports that she is feeling much better, with marked improvement of her shortness of breath, lower extremity edema. She states that she did get some shortness of breath well removing her oxygen to use the restroom, and her sister states that her oxygen levels dropped into the mid 80s. At rest, she currently denies any shortness of breath. She is currently using 2 L of oxygen. This afternoon, patient was able to tolerate room air while resting. She had a left heart cath yesterday, is feeling well afterwards. She continues to deny symptoms of chest pain, cough , nausea, vomiting, difficulty urinating. - Constitutional Vitals: Temp Pulse Resp BP Pulse Ox 98 F 113 18 132/78 99 04/08/17 09:06 04/08/17 09:06 04/08/17 09:06 04/08/17 09:06 04/08/17 09:06 General appearance: Present: mild distress, A&O X 3, pleasant, answers questions appropriately Exam: Gen.: Vitals noted. No acute distress. AAOx3 HEENT: PERRL, moist mucous membranes, oropharynx clear, Normocephalic, atraumatic Neck: Supple. No adenopathy. Cardiac: RRR, no murmur, +S1/S2 Pulmonary: CTA bilaterally, no wheezes, rales or rhonchi, equal chest expansion. Shallow respirations Abdomen: soft, nontender, BS noted, no guarding Back: Nontender throughout. MSK: ROM intact, no joint swelling noted Extremities: Small 1+ pedal edema on the right side, left side unremarkable for edema., nontender calf, no cyanosis or clubbing Neuro: A&Ox3, moves all extremities, no focal deficits Psych: Appropriate mood and behavior Internal Medicine: Result - Labs CBC & Chem 7: 04/08/17 05:23 04/08/17 05:23 Labs: Short CBC 04/08/17 Range/Units 05:23 WBC 7.4 (4.3-11.1) K/mcL Hgb 8.6 L (11.5-15.4) g/dL Hct 25.3 L (35.3-44.9) % Plt Count 135 L (140-400) K/mcL Neutrophils # 6.2 (1.6-8.9) K/mcL BMP 04/08/17 05:23 Sodium 134 L Potassium 2.9 L Chloride 94 L Carbon Dioxide 34 H BUN 11 Creatinine 0.64 Glucose 130 H Calcium 7.5 L - ABG Interpretation ABG results: PT/INR, D-dimer PT 12.3 Seconds (9.4-12.1) H 04/06/17 04:57 - VTE Documentation of Mechanical Device: Intermittent pneumatic compression device Consult Discharge Plan - Plan Referrals: Dayanara Solano, [employer] [Primary Care Provider] - (web request) <Monty Hubbard - Last Filed: 04/08/17 17:14> Date of Encounter: 04/08/17 - Constitutional Vitals: Temp Pulse Resp BP Pulse Ox 98.1 F 101 16 120/72 93 04/08/17 15:59 04/08/17 15:59 04/08/17 15:59 04/08/17 15:59 04/08/17 15:59 Internal Medicine: Result - Labs CBC & Chem 7: 04/08/17 05:23 04/08/17 05:23 Labs: Short CBC 04/08/17 Range/Units 05:23 WBC 7.4 (4.3-11.1) K/mcL Hgb 8.6 L (11.5-15.4) g/dL Hct 25.3 L (35.3-44.9) % Plt Count 135 L (140-400) K/mcL Neutrophils # 6.2 (1.6-8.9) K/mcL BMP 04/08/17 05:23 Sodium 134 L Potassium 2.9 L Chloride 94 L Carbon Dioxide 34 H BUN 11 Creatinine 0.64 Glucose 130 H Calcium 7.5 L - ABG Interpretation ABG results: PT/INR, D-dimer PT 12.3 Seconds (9.4-12.1) H 04/06/17 04:57 - Attending Attestation I examined this patient and my medical decision-making was reviewed with the Resident Physician on 04/08/17. I agree with the documented findings, disposition and treatment plan as described except to the extent set forth below. Seen and evaluated at bedside with family 61 F with acute CHFrEF, with EF 35%, acute hypoxic resp failure secondary to this, Obstructive CAD s/p stent placement 04/07 She has a PMH of MM s/p transplant, and also has DVT She Has no new complains at time of eval, losing weight, I/O -5L, kidney function acceptable, hypokalemia and hypomagnessemia possibly from diuresis, no diarrhea She remains tachycardic and we are increasing her BB. She also has been stable on room air , without requiring O2 PT/OT recommends home care physical therapist and PT-patient declined,prefers out-patient therapy Cardiology and Oncology recommendations noted and appreciated Physical lkbh-[id number]-cgyan, regular, not in distress, alopecia, chest with decreased breath sounds bilaterally, heart S1, S2, regular, abdomen is benign and not tender, 1+ bilateral pitting pedal edema, Labs and Imaging reviewed Continue ACEI, BB, lasix po, Eliquis, Plavix, ASA. Rest o details as in resident's documentation
--- NOTE | 2017-04-08 11:29 | Electrocardiograph Report ---
[address] [place], [place] [address] Test Date: 2017-04-07 Pat Name: Linsey Saul Department: 112 Room: 2A Gender: F Metrology Manager: : [id number] Requested By: Daiana Lawler Order Number: [id number] Reading MD: Daiana Lawler Measurements Intervals Lyman Rate: 111 P: 19 MT: 162 QRS: 13 QRSD: 96 T: -2 QT: 360 QTc: 426 Interpretive Statements SINUS TACHYCARDIA WITH OCCASIONAL SUPRAVENTRICULAR PREMATURE COMPLEXES LOW QRS VOLTAGE IN EXTREMITY LEADS NONSPECIFIC T-WAVE ABNORMALITY ABNORMAL RHYTHM ECG Electronically Signed On 04-08-2017 11:27:36 EDT by Daiana Lawler
[2017-04-08] MEDS: *HR* OxyCODONE Immed Rel 5 MG TABLET PO PRN (22:20)
[2017-04-08] MEDS: Melatonin 3 MG TABLET PO PRN (22:21)
[2017-04-09 05:59] LABS: Hematocrit 25.8 % (35.3-44.9); Hemoglobin 8.5 g/dL (11.5-15.4); Mean Corpuscular HGB Conc 32.9 g/dL (31.6-35.5); Mean Corpuscular Hemoglobin 31.4 pg (28.0-33.3); Mean Corpuscular Volume 95.2 fL (83.0-100.0); Platelet Count 133 K/mcL (140-400); Red Blood Count 2.71 M/mcL (3.82-4.97); Red Cell Distribution Width 18.3 % (11.5-14.5)
[2017-04-09 06:39] LABS: BUN/Creatinine Ratio 14 (6-26); Blood Urea Nitrogen 9 mg/dL (7-20); Calcium 7.2 mg/dL (8.6-10.8); Carbon Dioxide 30 mEq/L (19-29); Chloride 95 mEq/L (98-109); Glucose 160 mg/dL (70-99); Magnesium 1.5 mg/dL (1.6-2.6); Osmolality,Calculated 274 (280-300); Potassium 3.3 mEq/L (3.5-4.5); Sodium 131 mEq/L (136-145); eGFR For African Americans > 60 (> 60); eGFR For Non-African Americans > 60 (> 60)
[2017-04-09] MEDS ORDERED: Magnesium Sulfate 2 GM in D5% in Water 100 ML IVPB ONE ×2 (07:38)
[2017-04-09] MEDS: Ipratropium/Albuterol Neb 3 ML IH SCH ×2 (07:58→11:04)
[2017-04-09] MEDS: Insulin LISPRO 300 UNITS/3 ML VIAL SQ SCH ×2 (08:01→12:29)
[2017-04-09] MEDS: Nicotine 21 MG PATCH.TD24 TD SCH (08:02)
[2017-04-09] MEDS: Famotidine 20 MG TABLET PO SCH (08:03)
[2017-04-09] MEDS: Aspirin 81 MG TAB.CHEW PO SCH (08:03)
[2017-04-09] MEDS: Furosemide 40 MG TABLET PO SCH (08:03)
[2017-04-09] MEDS: APIXABAN 5 MG TABLET PO SCH (08:03)
[2017-04-09] MEDS ORDERED: Metoprolol XL (24 HR) Succ 50 MG TAB.ER.24H PO SCH ×3 (09:00)
[2017-04-09 11:06] VITALS: BP 118/75
--- NOTE | 2017-04-09 13:48 | Discharge Summary ---
Addendum entered and electronically signed by Mario Wilder DO 04/09/17 14:53: In regards to setting up outpatient physical therapy, patient is to see their primary care physician and have it set up through them, per social work. Patient was advised to activity as tolerated, with frequent rests and supervision of family Original Note: <Mario Wilder - Last Filed: 04/09/17 13:35> Date of Encounter: 04/09/17 Time of Encounter: 09:00 - Discharge Diagnosis (1) Congestive heart failure Priority: Primary Status: Acute Qualifiers: Congestive heart failure type: systolic Congestive heart failure chronicity : acute Qualified Code(s): I50.21 - Acute systolic (congestive) heart failure (2) Elevated troponin I level Priority: Primary Status: Acute (3) Elevated d-dimer Priority: Primary Status: Acute (4) Multiple myeloma Priority: Secondary Status: Chronic Qualifiers: Multiple myeloma remission status: in remission Qualified Code(s): C90.01 - Multiple myeloma in remission (5) Hypomagnesemia Priority: Primary Status: Acute - Discharge Medications Prescriptions: Apixaban [Eliquis] 5 mg PO BID #60 tab Aspirin 81 mg PO DAILY #30 tab.chew Clopidogrel [Plavix] 75 mg PO DAILY #30 tab Lisinopril [Zestril] 2.5 mg PO DAILY #30 tab Magnesium 400 mg PO DAILY #60 tablet Metoprolol XL (24 HR) Succ [Toprol Xl] 100 mg PO DAILY #30 Potassium Chloride 20 meq PO BID #60 tab.er.prt Home Medications: Glimepiride [Amaryl] 4 mg PO BID 08/18/15 [History] Gabapentin [Neurontin] 300 mg PO BID 10/14/16 [History] Melatonin [Melatin] 3 mg PO HS PRN 10/14/16 [History] Calcium Carbonate [Calcium] 600 mg PO BID #60 tablet 01/29/17 [Rx] Acyclovir [Zovirax] 400 mg PO BID 03/02/17 [History] Furosemide [Lasix] 40 mg PO QAM 04/05/17 [History] Loperamide [Imodium] 2 mg PO Q4HR PRN MDD 8 TABLETS 04/05/17 [History] Metformin HCl [Glucophage] 1,000 mg PO BID 04/05/17 [History] Ondansetron HCl [Zofran] 4 mg PO Q6H PRN 04/05/17 [History] Apixaban [Eliquis] 5 mg PO BID #60 tab 04/09/17 [Rx] Aspirin 81 mg PO DAILY #30 tab.chew 04/09/17 [Rx] Atorvastatin [Lipitor] 80 mg PO HS tab 04/09/17 [Rx] Clopidogrel [Plavix] 75 mg PO DAILY #30 tab 04/09/17 [Rx] Lisinopril [Zestril] 2.5 mg PO DAILY #30 tab 04/09/17 [Rx] Magnesium 400 mg PO DAILY #60 tablet 04/09/17 [Rx] Metoprolol XL (24 HR) Succ [Toprol Xl] 100 mg PO DAILY #30 04/09/17 [Rx] Potassium Chloride 20 meq PO BID #60 tab.er.prt 04/09/17 [Rx] Allergies/Adverse Reactions: Allergies No Known Allergies Allergy (Verified 04/05/17 14:33) Procedures/tests Complete & Pending: Procedures Performed prior 72 hours Category Date Time Status CL Cardiac Catheterization [CL] Routine Basket Maker 04/07/17 09:37 Completed ECG 12 lead ECG [ECG] Stat Y 04/07/17 14:16 Completed EV venous imaging UE BI Stat Y 04/06/17 15:09 Completed Date of admission: 04/05/17 10:42 Primary care physician: Dayanara Solano CNP Consults: 04/05/17 10:45 Consult to Cardiology [CONS] Routine Comment: Consulting Provider: Cardiology [place] Reason for Consult: Elevated troponin, CHF Call Completed: No Consult to Oncology [CONS] Routine Consulting Provider: [facility] [place] Reason for Consult: Multiple myeloma, recent stem cell transplant Call Completed: No 04/05/17 11:20 Consult to Nutrition [CONS] Routine Comment: Consulting Provider: NUTRITION Reason for Dietary Consult: Other Other:: Cancer, recent weight loss 04/06/17 17:43 Consult to Occupational Therapy [CONS] Routine Comment: Evaluate, develop and implement POC Reason for Consult: instability, weakness Consult to Physical Therapy [CONS] Routine Comment: Evaluate, develop and implement POC Reason for Consult: instability, weakness 04/07/17 14:19 Consult to Cardiac Rehabilitation-Phase1 [CONS] Routine Comment: Reason for Consult: CAD s/p PCI, CHF Call Completed: Yes Discharging clinician: Mario Wilder Anticipated date of discharge: 04/09/17 - Patient Status Disposition: Home, Self-Care Condition: Good Functional capacity at discharge: independent ambulation Overall status at discharge: patient is back to baseline - Discharge Instructions Instructions: Heart Failure (DC), Chronic Hypertension (DC) Follow Up With: Dayanara Solano, ANGEL [Primary Care Provider] - (web request) Additional Instructions: Please be sure to follow up with your primary care provider in regards to your heart health, lab results. - Diet and Activity Activity: as per physical therapy, increase activity as tolerated Diet: advance to your usual diet Hospital course: Ms. Saul is a 61 year old female with a past history of multiple myeloma status post stem cell transplant who presents to the [facility] with a chief complaint of shortness of breath. She states that she has become increasing short of breath for the last couple weeks, and is also noticed bilateral lower extremity edema. She has reportedly gained 20 pounds in the past couple weeks. Patient was discharged 6 days prior to admission from [facility] after undergoing stem cell transplant. Patient was transferred from [facility] department for shortness of breath and elevated troponin. Initial evaluation appointments Department revealed elevated troponin of 0.45, d -dimer of 1295, EKG revealed sinus tachycardia. Vital signs revealed a pulse of 119, remainder of Vital signs within normal limits. Significant other lab results include H/H of 9.0/27.8, platelets at 104. CT angiogram revealed no evidence of pulmonary embolism, however showed pulmonary congestion consistent with new onset congestive heart failure. Patient reports history of bilateral upper extremity DVT. Patient was admitted to medicine service with diagnosis of systolic congestive heart failure, ACS rule out, elevated troponin level Venous Doppler ultrasound revealed thrombosis in bilateral upper extremities. Ultrasound of lower extremities revealed no DVT. Troponin levels were trended and revealed 0.45, 0.52, 0.51, 0.46. Echocardiogram was performed the next day which showed an ejection fraction of 35%, moderate global left ventricular systolic dysfunction with regional variations, indeterminant diastolic function , severe left atrial enlargement. This was a decrease from echo done at [facility] in January which had an ejection fraction of 62%. Patient was followed closely by cardiology during admission, and left heart catheterization was performed to evaluate change in ejection fraction. Patient received 2 drug- eluting stents. Patient's congestive heart failure was medically managed with Lasix and symptomatically improved each day, total of -4 L of fluid loss cumulatively. She was weaned down from oxygen, is no longer requiring supplemental oxygen at this time. She also received thrombolysis with heparin for bilateral upper extremity DVTs, patient was transitioned to a eliquis after left heart catheterization. Patient will be discharged home on aspirin, atorvastatin, metoprolol succinate, SHAYNE inhibitor, Lasix. She was also instructed to follow-up with primary care doctor as well as web application dev specialist upon discharge. Patient received physical and occupational therapy during admission , home health and physical therapy were offered upon discharge, however patient is refusing stating that she would rather do outpatient physical therapy to " get out of the house ". She additionally will be sent home on oral potassium supplement, oral magnesium supplement for hypo-magnesia and hypokalemia during stay. - Time Spent with Patient Total time spent providing and/or coordinating discharge services: - Constitutional Vitals: Temp Pulse Resp BP Pulse Ox 98.3 F 106 16 118/75 95 04/09/17 11:00 04/09/17 11:00 04/09/17 11:10 04/09/17 11:00 04/09/17 11:10 General appearance: Present: mild distress, A&O X 3, pleasant, answers questions appropriately Exam: Gen.: Vitals noted. No acute distress. AAOx3 . Sitting in bed without supplemental oxygen, speaking in full sentences HEENT: PERRL/EOMI, oropharynx clear, Normocephalic, atraumatic Neck: Supple. No adenopathy. Cardiac: RRR, no murmur, +S1/S2 Pulmonary: CTA bilaterally, no wheezes, rales or rhonchi, equal chest expansion Abdomen: soft, nontender, BS noted, no guarding Back: Nontender throughout. MSK: ROM intact, no joint swelling noted Extremities: Bilateral lower extremity edema has resolved., nontender calf, no cyanosis or clubbing Neuro: A&Ox3, moves all extremities, no focal deficits Psych: Appropriate mood and behavior - VTE Documentation of Mechanical Device: Intermittent pneumatic compression device <Monty Hubbard - Last Filed: 04/09/17 17:28> Date of Encounter: 04/09/17 Procedures/tests Complete & Pending: Procedures Performed prior 72 hours Category Date Time Status CL Cardiac Catheterization [CL] Routine Basket Maker 04/07/17 09:37 Completed ECG 12 lead ECG [ECG] Stat Y 04/07/17 14:16 Completed Date of admission: 04/05/17 10:42 Primary care physician: Dayanara Solano CNP Consults: 04/05/17 10:45 Consult to Cardiology [CONS] Routine Comment: Consulting Provider: Cardiology [place] Reason for Consult: Elevated troponin, CHF Call Completed: No Consult to Oncology [CONS] Routine Consulting Provider: [facility] [place] Reason for Consult: Multiple myeloma, recent stem cell transplant Call Completed: No 04/05/17 11:20 Consult to Nutrition [CONS] Routine Comment: Consulting Provider: NUTRITION Reason for Dietary Consult: Other Other:: Cancer, recent weight loss 04/06/17 17:43 Consult to Occupational Therapy [CONS] Routine Comment: Evaluate, develop and implement POC Reason for Consult: instability, weakness Consult to Physical Therapy [CONS] Routine Comment: Evaluate, develop and implement POC Reason for Consult: instability, weakness 04/07/17 14:19 Consult to Cardiac Rehabilitation-Phase1 [CONS] Routine Comment: Reason for Consult: CAD s/p PCI, CHF Call Completed: Yes Hospital course: Ms. Saul is a 61 year old female - Time Spent with Patient Total time spent providing and/or coordinating discharge services: - Constitutional Vitals: Temp Pulse Resp BP Pulse Ox 98.3 F 106 16 118/75 95 04/09/17 11:00 04/09/17 11:00 04/09/17 11:10 04/09/17 11:00 04/09/17 11:10 - Attending Attestation I examined this patient and my medical decision-making was reviewed with the Resident Physician on 04/09/17. I agree with the documented findings, disposition and treatment plan as described except to the extent set forth below. Seen and evaluated at bedside 61 F with acute CHFrEF, with EF 35%, acute hypoxic resp failure secondary to this, Obstructive CAD s/p stent placement 04/07 She has a PMH of MM s/p transplant, and also has DVT She Has no new complains at time of eval, losing weight, I/O -5L, kidney function acceptable, hypokalemia and hypomagnessemia possibly from diuresis, no diarrhea She remains tachycardic but mostly less than 110 She also has been stable on room air , without requiring O2 PT/OT recommends mobile home servicer and PT-patient declined,prefers out-patient therapy Cardiology and Oncology recommendations noted and appreciated Physical [id number], regular, not in distress, alopecia, chest with decreased breath sounds bilaterally, heart S1, S2, regular, abdomen is benign and not tender, trace bilateral pitting pedal edema, Labs and Imaging reviewed Patient insists on being discharged today. She has an appointment in a week with her PCP, recommend further increase in BB as tolerated by her blood pressure, continue ACEI/DAPT/Eliquis, BB, Lasix. Activities as toelerated Verbalized understanding Rest o details as in resident's documentation
== END 2017-04-09 15:53 | disposition home or self-care (01) | DRG 175 ==
LOC: 2ANU → SUATTDRO 10:42
PROVIDERS: ADMIT Family Medicine; ATTEND Internal Medicine

== ENCOUNTER 2018-05-22 20:18 | Inpatient (IN) ==
[2018-05-22] MEDS ORDERED: Isovue-370 500 ML INFUS..BTL IV ONE (20:35)
[2018-05-22] MEDS ORDERED: 0.9 % Sodium Chloride 1,000 ML IVC ONE ×2 (20:35→23:44)
[2018-05-22] MEDS ORDERED: Piperacillin/Tazobactam 3.375 GM in 0.9 % Sodium Chloride Mini Bag 100 ML IVPB ONE (20:35)
--- NOTE | 2018-05-22 20:45 | Emergency Department Note ---
Disposition Clinical Impression: Wound of foot Sepsis Qualifiers: Sepsis type: sepsis due to unspecified organism Qualified Code(s): A41.9 - Sepsis, unspecified organism Neutropenia Qualifiers: Neutropenia type: unspecified Qualified Code(s): D70.9 - Neutropenia, unspecified Cellulitis Qualifiers: Site of cellulitis: extremity Site of cellulitis of extremity: lower extremity Laterality: left Qualified Code(s): L03.116 - Cellulitis of left lower limb Disposition: Admitted As Inpatient Condition: Undetermined Referrals: Dayanara Solano CNP [Primary Care Provider] - Forms: ED Satisfaction Letter Time of Disposition: 23:46 General Adult HPI - General Chief complaint: ED Extremity Injury, Lower Stated complaint: cellulitis left foot sent from [place] Time Seen by Provider: 05/22/18 20:24 Source: patient Mode of arrival: ambulatory Limitations: no limitations Nursing Notes Reviewed: Yes Vital Signs Reviewed: Yes - History of Present Illness HPI Narrative: 62 year old female with history of diabetes, multiple myeloma on maintenance chemotherapy arrives to the ED complaining of worsening pain and skin changes to left foot. The patient recent had a piece of glass removed by Workers Compensation Claims Assistant roughly 5 days ago. The patient has been receiving IV rocephin at the [facility] cancer center for this concern for possible infection. The patient noted blistering on the dorsal aspect of foot and worsening redness and warmth to the touch. The patient states that her daughter marked the blistering and it has continued to progress. The patient only has mild pain. The patient went to urgent care where they were concerned and sent patient to the ED for evaluation. Denies fevers, Chills, nausea, new paraesthesias. Pain Scale: 5 - Related Data Home Medications Medication Instructions Recorded Confirmed Acyclovir [Zovirax] 400 mg PO BID 03/02/17 05/19/18 Furosemide [Lasix] 40 mg PO DAILY 04/05/17 05/19/18 Metformin HCl [Glucophage] 1,000 mg PO BID 04/05/17 05/19/18 Gabapentin [Neurontin] 800 mg PO TID 08/03/17 05/19/18 Melatonin 3 mg PO HS 08/03/17 05/19/18 Omeprazole [PriLOSEC] 40 mg PO DAILY 08/03/17 05/19/18 Ascorbate Calcium [Vitamin C] 500 mg PO DAILY 04/13/18 05/19/18 Ferrous Sulfate [Iron] 325 mg PO DAILY 04/13/18 05/19/18 Glimepiride [Amaryl] 8 mg PO BID 04/13/18 05/19/18 LORazepam [Ativan] 0.5 mg PO QPM 04/22/18 05/19/18 Previous Rx's Medication Instructions Recorded Aspirin 81 mg PO DAILY #30 tab.chew 04/09/17 Atorvastatin [Lipitor] 80 mg PO HS #60 tablet 04/09/17 Clopidogrel [Plavix] 75 mg PO DAILY #30 tab 04/09/17 Lisinopril [Zestril] 2.5 mg PO DAILY #30 tab 04/09/17 Metoprolol XL (24 HR) Succ [Toprol 100 mg PO DAILY #60 tab 04/09/17 Xl] Potassium Chloride 20 meq PO BID #60 tab.er.prt 04/09/17 Calcium Carbonate [Calcium] 600 mg PO BID #60 tablet 04/16/17 Magnesium Oxide [Magnesium] 400 mg PO TID #90 tablet 05/04/18 Pomalidomide [Pomalyst] 2 mg PO DAILY #21 capsule 05/19/18 Allergies Allergy/AdvReac Type Severity Reaction Status Date / Time No Known Allergies Allergy Verified 05/22/18 19:24 All systems ED: reviewed and negative except as stated. Constitutional: Denies: fever, chills, weakness ENT ED: Denies: dysphagia Cardiovascular: Denies: chest pain Respiratory: Denies: dyspnea Gastrointestinal: Denies: abdominal pain Genitourinary: Denies: urgency, dysuria Musculoskeletal: Reports: joint swelling, arthralgia, myalgia. Denies: back pain, neck pain Integumentary: Reports: lesions Neurological: Denies: headache, weakness, numbness Past Medical History - Past Medical History Attestation: Yes The following information was validated with the patient. Source: patient, old records reviewed Medical history: Reports: cancer, CHF, coronary artery disease, DVT, diabetes, GERD, hyperlipidemia, hypertension, myocardial infarction, other Surgical history: Reports: angioplasty/stent, other Psychiatric history: Reports: anxiety, depression DIRECTOR OF CAREER RESOURCES history: Reports: bilateral tubal ligation - Social History Smoking Status: Former smoker Smokeless Tobacco Status: No Alcohol use: Reports: none Drug use: Reports: none Physical Exam - General Limitations: no limitations General appearance: alert, in no apparent distress - Head Head exam: atraumatic, normocephalic, normal inspection - Eye Eye exam: Present: normal appearance, PERRL, EOMI - ENT ENT exam: normal exam, normal oropharynx, mucous membranes moist - Neck Neck exam: Present: normal inspection, full ROM, trachea midline - Chest Chest inspection: Present: normal inspection, symmetric chest wall rise - Respiratory Respiratory exam: Present: normal lung sounds bilaterally - Cardiovascular Cardiovascular exam: Present: regular rate, normal rhythm, normal heart sounds - Abdominal Exam Abdominal exam: Present: soft, Non-Tender. Absent: tenderness, distention, guarding, rebound, rigidity - Extremities Exam Extremities exam: Present: full ROM, tenderness (Left foot), other (Patient has blistering on dorsal aspect of the 3-4 toes on the left foot. Warm to the touch. Tender to palpation. Mild erythema to left foot.) - Neurological Exam Neurological exam: Present: alert, oriented X3 - Skin Skin exam: Present: warm, dry Course Vital Signs Temperature 98.5 F 05/22/18 20:21 Pulse Rate 82 05/22/18 20:21 Respiratory Rate 20 05/22/18 20:21 Blood Pressure 180/98 05/22/18 20:21 O2 Sat by Pulse Oximetry 98 05/22/18 20:21 Temperature 98.5 F 05/22/18 20:44 Pulse Rate 72 05/22/18 22:46 Respiratory Rate 18 05/22/18 22:46 Blood Pressure 148/66 05/22/18 22:46 O2 Sat by Pulse Oximetry 98 05/22/18 20:44 Oxygen Delivery Oxygen Delivery Room Air Medical Decision Making - [facility] Narrative Medical decision making narrative: Patient CT scan demonstrates findings consistent with sialitis without osteomyelitis or abscess. There is a small foci of gas consistent with the patient's suture and recent procedure of the left foot. The patient's lab work demonstrates findings concerning for an elevated lactic acid at 3.9. The patient received 1 L IV fluids. Blood cultures were obtained. The patient was started on vancomycin and Zosyn. The patient will be admitted to the hospitalist this time for sepsis and cellulitis. Patient made aware and agrees to plan. No further questions or concerns. Accepted by Dr. Arce. - Lab Data Lab results reviewed: Yes I reviewed the patient's lab results. Result diagrams: 05/22/18 20:43 05/22/18 20:43 Lab Results 05/22/18 05/22/18 05/22/18 Range/Units 20:43 20:43 20:43 WBC 2.5 L (4.3-11.1) K/mcL RBC 3.37 L (3.82-4.97) M/mcL Hgb 10.3 L (11.5-15.4) g/dL Hct 31.7 L (35.3-44.9) % MCV 94.1 (83.0-100.0) fL MCH 30.6 (28.0-33.3) pg MCHC 32.5 (31.6-35.5) g/dL RDW 14.2 (11.5-14.5) % Plt Count 163 (140-400) K/mcL MPV 8.7 L (9.4-12.4) fL Immature Gran % 0.4 (0-4) % Seg Neutrophils % 53.9 % Lymphocytes % 22.6 % Monocytes % 16.7 % Eosinophils % 5.6 % Basophils % 0.8 % Neutrophils # 1.4 L (1.6-8.9) K/mcL Lymphocytes # 0.6 (0.6-4.6) K/mcL Monocytes # 0.4 (0.0-1.3) K/mcL Eosinophils # 0.1 (0.0-0.6) K/mcL Basophils # 0.0 (0.0-0.2) K/mcL Reactive Lymphocytes Present A (Not Present) Platelet Estimate Normal (Normal) Hypochromasia Present A (Not Present) Sodium 135 L (136-145) mEq/L Potassium 4.4 (3.5-5.1) mEq/L Chloride 98 (98-107) mEq/L Carbon Dioxide 26 (23-29) mEq/L BUN 19 (8-23) mg/dL Creatinine 0.80 (0.60-1.20) mg/dL Est GFR ( Amer) > 60 (> 60) Est GFR (Non-Af Amer) > 60 (> 60) BUN/Creatinine Ratio 24 (6-26) Glucose 175 H (70-105) mg/dL Calculated Osmolality 287 (280-300) Lactic Acid 3.9 H (0.5-2.2) mmol/L Calcium 8.9 (8.6-10.3) mg/dL - Radiology Data Radiology results reviewed: Yes I reviewed the patient's radiology results. Foot CT 05/22/18 20:35 IMPRESSION: 1. No CT evidence of acute osteomyelitis or abscess. 2. Forefoot soft tissue swelling. There is a single tiny focus of gas within the forefoot soft tissues between the 2nd and 3rd digits. 3. No radiopaque foreign body. 4. Peripheral vascular disease. D/ / Migdalia Connelly MD / Migdalia Connelly MD Interpreting Provider: Migdalia Connelly MD Attestation Statement - Attestation Attestation: I, Joseph Molina DO, examined this patient [id number] and my medical decision-making was reviewed with Rizwana Sanders DO, Resident Physician. I agree with the documented findings, disposition and treatment plan as described except to the extent set forth below. Please see my progress notes for details.
[2018-05-22 20:57] LABS: Basophils % 0.8 %; Eosinophils # 0.1 K/mcL (0.0-0.6); Eosinophils % 5.6 %; Hematocrit 31.7 % (35.3-44.9); Hemoglobin 10.3 g/dL (11.5-15.4); Immature Granulocytes % 0.4 % (0-4); Lymphocytes # 0.6 K/mcL (0.6-4.6); Lymphocytes % 22.6 %; Mean Corpuscular HGB Conc 32.5 g/dL (31.6-35.5); Mean Corpuscular Hemoglobin 30.6 pg (28.0-33.3); Mean Corpuscular Volume 94.1 fL (83.0-100.0); Mean Platelet Volume 8.7 fL (9.4-12.4); Monocytes # 0.4 K/mcL (0.0-1.3); Monocytes % 16.7 %; Neutrophils # 1.4 K/mcL (1.6-8.9); Platelet Count 163 K/mcL (140-400); Red Blood Count 3.37 M/mcL (3.82-4.97); Red Cell Distribution Width 14.2 % (11.5-14.5); Segmented Neutrophils % 53.9 %
[2018-05-22 21:16] LABS: BUN/Creatinine Ratio 24 (6-26); Blood Urea Nitrogen 19 mg/dL (8-23); Calcium 8.9 mg/dL (8.6-10.3); Carbon Dioxide 26 mEq/L (23-29); Chloride 98 mEq/L (98-107); Glucose 175 mg/dL (70-105); Osmolality,Calculated 287 (280-300); Potassium 4.4 mEq/L (3.5-5.1); Sodium 135 mEq/L (136-145); eGFR For Non-African Americans > 60 (> 60)
--- NOTE | 2018-05-22 21:26 | Emergency Department Note ---
Disposition Clinical Impression: Wound of foot Sepsis Qualifiers: Sepsis type: sepsis due to unspecified organism Qualified Code(s): A41.9 - Sepsis, unspecified organism Neutropenia Qualifiers: Neutropenia type: unspecified Qualified Code(s): D70.9 - Neutropenia, unspecified Cellulitis Qualifiers: Site of cellulitis: extremity Site of cellulitis of extremity: lower extremity Laterality: left Qualified Code(s): L03.116 - Cellulitis of left lower limb Disposition: Admitted As Inpatient Condition: Fair Time of Disposition: 23:42 General Adult HPI - General Chief complaint: ED Extremity Injury, Lower Stated complaint: cellulitis left foot sent from [place] Time Seen by Provider: 05/22/18 20:24 Source: patient Mode of arrival: ambulatory Limitations: no limitations - History of Present Illness Pain Scale: 5 - Related Data Home Medications Medication Instructions Recorded Confirmed Acyclovir [Zovirax] 400 mg PO BID 03/02/17 05/19/18 Furosemide [Lasix] 40 mg PO DAILY 04/05/17 05/19/18 Metformin HCl [Glucophage] 1,000 mg PO BID 04/05/17 05/19/18 Gabapentin [Neurontin] 800 mg PO TID 08/03/17 05/19/18 Melatonin 3 mg PO HS 08/03/17 05/19/18 Omeprazole [PriLOSEC] 40 mg PO DAILY 08/03/17 05/19/18 Ascorbate Calcium [Vitamin C] 500 mg PO DAILY 04/13/18 05/19/18 Ferrous Sulfate [Iron] 325 mg PO DAILY 04/13/18 05/19/18 Glimepiride [Amaryl] 8 mg PO BID 04/13/18 05/19/18 LORazepam [Ativan] 0.5 mg PO QPM 04/22/18 05/19/18 Previous Rx's Medication Instructions Recorded Aspirin 81 mg PO DAILY #30 tab.chew 04/09/17 Atorvastatin [Lipitor] 80 mg PO HS #60 tablet 04/09/17 Clopidogrel [Plavix] 75 mg PO DAILY #30 tab 04/09/17 Lisinopril [Zestril] 2.5 mg PO DAILY #30 tab 04/09/17 Metoprolol XL (24 HR) Succ [Toprol 100 mg PO DAILY #60 tab 04/09/17 Xl] Potassium Chloride 20 meq PO BID #60 tab.er.prt 04/09/17 Calcium Carbonate [Calcium] 600 mg PO BID #60 tablet 04/16/17 Magnesium Oxide [Magnesium] 400 mg PO TID #90 tablet 05/04/18 Pomalidomide [Pomalyst] 2 mg PO DAILY #21 capsule 05/19/18 Allergies Allergy/AdvReac Type Severity Reaction Status Date / Time No Known Allergies Allergy Verified 05/22/18 19:24 Constitutional: Denies: fever, chills, weakness ENT ED: Denies: dysphagia Cardiovascular: Denies: chest pain Respiratory: Denies: dyspnea Gastrointestinal: Denies: abdominal pain Genitourinary: Denies: urgency, dysuria Musculoskeletal: Reports: joint swelling, arthralgia, myalgia. 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 - Social History Smoking Status: Former smoker Smokeless Tobacco Status: No Alcohol use: Reports: none Drug use: Reports: none Physical Exam - General Limitations: no limitations General appearance: alert, in no apparent distress Course Vital Signs Temperature 98.5 F 05/22/18 20:21 Pulse Rate 82 05/22/18 20:21 Respiratory Rate 20 05/22/18 20:21 Blood Pressure 180/98 05/22/18 20:21 O2 Sat by Pulse Oximetry 98 05/22/18 20:21 Temperature 98.5 F 05/22/18 20:44 Pulse Rate 72 05/22/18 23:57 Respiratory Rate 18 05/22/18 23:57 Blood Pressure 151/71 05/22/18 23:57 O2 Sat by Pulse Oximetry 98 05/22/18 20:44 Oxygen Delivery Oxygen Delivery Room Air Medical Decision Making - Lab Data Result diagrams: 05/22/18 20:43 05/22/18 20:43 Lab Results 05/22/18 05/22/18 05/22/18 Range/Units 20:43 20:43 20:43 WBC 2.5 L (4.3-11.1) K/mcL RBC 3.37 L (3.82-4.97) M/mcL Hgb 10.3 L (11.5-15.4) g/dL Hct 31.7 L (35.3-44.9) % MCV 94.1 (83.0-100.0) fL MCH 30.6 (28.0-33.3) pg MCHC 32.5 (31.6-35.5) g/dL RDW 14.2 (11.5-14.5) % Plt Count 163 (140-400) K/mcL MPV 8.7 L (9.4-12.4) fL Immature Gran % 0.4 (0-4) % Seg Neutrophils % 53.9 % Lymphocytes % 22.6 % Monocytes % 16.7 % Eosinophils % 5.6 % Basophils % 0.8 % Neutrophils # 1.4 L (1.6-8.9) K/mcL Lymphocytes # 0.6 (0.6-4.6) K/mcL Monocytes # 0.4 (0.0-1.3) K/mcL Eosinophils # 0.1 (0.0-0.6) K/mcL Basophils # 0.0 (0.0-0.2) K/mcL Reactive Lymphocytes Present A (Not Present) Platelet Estimate Normal (Normal) Hypochromasia Present A (Not Present) Sodium 135 L (136-145) mEq/L Potassium 4.4 (3.5-5.1) mEq/L Chloride 98 (98-107) mEq/L Carbon Dioxide 26 (23-29) mEq/L BUN 19 (8-23) mg/dL Creatinine 0.80 (0.60-1.20) mg/dL Est GFR ( Amer) > 60 (> 60) Est GFR (Non-Af Amer) > 60 (> 60) BUN/Creatinine Ratio 24 (6-26) Glucose 175 H (70-105) mg/dL Calculated Osmolality 287 (280-300) Lactic Acid 3.9 H (0.5-2.2) mmol/L Calcium 8.9 (8.6-10.3) mg/dL Attestation Statement - Attestation Attestation: I, Joseph Molina DO, examined this patient [id number] and my medical decision-making was reviewed with Rizwana Sanders DO, Resident Physician. I agree with the documented findings, disposition and treatment plan as described except to the extent set forth below. Please see my progress notes for details. 62-year-old female presents emergency room for evaluation of possible infection to the left foot. Patient has bad diabetic neuropathy as well as multiple myeloma. She was just seen and evaluated for piece of retained glass at the base of the MTP of the left second toe. Patient had a surgery completed with 3 simple interrupted sutures on the plantar aspect of the foot at the MTP joint. The family is concerned because over the last day it is considerably more swollen with redness as well as some fluid accumulation. CT imaging of the leg will be ordered along with screening labs. Patient is concerning secondary to being immunosuppressed with her multiple myeloma history. Disposition will be determined once full workup treatment course is evaluated. Otherwise patient has what appears to be normal sensation with slight swelling to the second third digit of the foot. Antibiotic regimen has been ordered blood cultures have been established. See detailed documentation of the physical exam, medical intervention, medical decision-making and disposition in the resident physician's note. 2135 Patient found to have the lactic acid 3.9. White blood cell count appears to be at baseline at this time with her history multiple myeloma. The remainder of her chemistry panels are still pending. Patient has CT imaging of the left lower extremity that is still being completed this point. IV antibiotics have been provided and cultures have been collected. Expectation is that the patient will be admitted. Currently she does not meet any acute findings consistent with sepsis or septic shock. She does have what appears to be an infection of the foot with another confounding medical issues including the multiple myeloma. We will continue to monitor here to see if there is any other profound lab derangements and then discuss admission process. 2335 Patient has what appears to be stable CT imaging of the foot with no abscesses or deterioration of the bone. Patient will be admitted secondary to elevated lactic acid and or immunosuppression. Antibiotic regimen has been started. Patient is clinically stable this point. Admission process will be established. At [address] imaging was resulted the patient does most likely have the source of the cellulitis to the foot considering the erythema to the left foot at this time. She does not meet all the criteria for sepsis or septic shock but there is concerning because of the history multiple myeloma as well as the lack of elevated white blood cell count history that this is most likely infectious etiology. Patient will be admitted. The hospitalist Dr. Arce reviewed the case no other recommendations or concerns at this time. Patient is clinically stable. Admission process to be established
[2018-05-22 21:31] LABS: Hypochromasia Present (Not Present); Platelet Estimate Normal (Normal); Reactive Lymphocytes Present (Not Present)
[2018-05-23] MEDS ORDERED: Dextrose Gel 15 GM/37.5 ML TUBE PO PRN ×2 (04:47)
[2018-05-23] MEDS ORDERED: *HR* HYDROcodone/Acet 5/325 mg TABLET PO PRN (04:47)
[2018-05-23] MEDS ORDERED: D5% in Water 1,000 ML IVC PRN (04:47)
[2018-05-23] MEDS ORDERED: Acetaminophen 325 MG TABLET PO PRN (04:47)
[2018-05-23] MEDS ORDERED: Naloxone 0.4 MG/ML INJ IVP PRN (04:47)
[2018-05-23] MEDS ORDERED: *HR* Dextrose 50 % in Water (Syg) 50 ML SYRINGE IVP PRN (04:47)
[2018-05-23] MEDS ORDERED: 0.9 % Sodium Chloride 1,000 ML IVC SCH (05:00)
[2018-05-23] MEDS ORDERED: Vancomycin (wt based) 1,000 MG VIAL IVPB SCH (05:00)
--- NOTE | 2018-05-23 05:05 | Internal Med History&Physical ---
Date of Encounter: 05/23/18 Time of Encounter: 04:15 Internal Medicine - H&P: HPI Chief complaint: foot infection Admitted From: Emergency Dept Plans for Post Hospital Care: Home History of present illness: Ms. Saul is a 62 year old female who presented to our ER tonight after being seen in urgent care for a foot infection. She had a piece of glass removed 5 days ago from podiatry office and was placed on antibiotics. She has peripheral neuropathy in her feet from her diabetes and does not remember stepping on a piece of glass. The foreign body was removed, and she was subsequently treated as an outpatient. She even received an IV dose of Rocephin in the cancer center this past Thursday. She was seen in urgent care today and referred to the ER because of concerns of sepsis. Workup in the ER was concerning for sepsis. She did have CT of her left foot showing findings consistent with cellulitis and a small focus of gas within the foot where the foreign body was. She was fluid resuscitated and placed on IV antibiotics. ER contacted me to admit the patient. I accepted the patient to our service, but I requested that they contact podiatry for consultation and likely further surgical intervention. Upon my assessment of the patient, she is sleeping but easily arousable. She feels much better after the fluid resuscitation in the ER. Vital signs remain stable. Lactate has decreased and normalized since admission. She has minimal sensation in her feet but does complain of some mild pain in the foot. Her left foot is red and swollen compared to her right foot. She denies any other pain or swelling. She had said some nausea and vomiting but no diarrhea. She has had some fevers and chills the last 2 days. In addition to her diabetes, she is currently being treated for multiple myeloma at the cancer center. Past Med Surg Social Fam HX - Past Medical History Attestation: Yes The following information was validated with the patient. Source: patient, old records reviewed Medical history: cancer, CHF, coronary artery disease, DVT, diabetes, GERD, hyperlipidemia, hypertension, myocardial infarction, other Additional medical history: blood thinners, cardiac stents X 2, anemia Psychiatric history: anxiety, depression - Past Surgical History Surgical History: angioplasty/stent, other Additional surgical history: d&c,tubal ligation,laser eye,bone marrow,stem cell transplant, L humerus ORIF - Social History Smoking Status: Former smoker Smokeless Tobacco Status: No Alcohol use: none Drug use: none Activity Level: Independent ambulation Recent Out of Country Travel Within the Last 8 Weeks: No - Family History Mother Hx Family Cardiac Disorders: Yes Hx Family Endocrine Disorder: No Father Hx Family Cardiac Disorders: No Internal Medicine - H&P: Meds Acyclovir [Zovirax] 400 mg PO BID 03/02/17 [History] Furosemide [Lasix] 40 mg PO DAILY 04/05/17 [History] Metformin HCl [Glucophage] 1,000 mg PO BID 04/05/17 [History] Aspirin 81 mg PO DAILY #30 tab.chew 04/09/17 [Rx] Atorvastatin [Lipitor] 80 mg PO HS #60 tablet 04/09/17 [Rx] Clopidogrel [Plavix] 75 mg PO DAILY #30 tab 04/09/17 [Rx] Lisinopril [Zestril] 2.5 mg PO DAILY #30 tab 04/09/17 [Rx] Metoprolol XL (24 HR) Succ [Toprol Xl] 100 mg PO DAILY #60 tab 04/09/17 [Rx] Potassium Chloride 20 meq PO BID #60 tab.er.prt 04/09/17 [Rx] Calcium Carbonate [Calcium] 600 mg PO BID #60 tablet 04/16/17 [Rx] Gabapentin [Neurontin] 800 mg PO TID 08/03/17 [History] Melatonin 3 mg PO HS 08/03/17 [History] Omeprazole [PriLOSEC] 40 mg PO DAILY 08/03/17 [History] Ascorbate Calcium [Vitamin C] 500 mg PO DAILY 04/13/18 [History] Ferrous Sulfate [Iron] 325 mg PO DAILY 04/13/18 [History] Glimepiride [Amaryl] 8 mg PO DAILY 04/13/18 [History] LORazepam [Ativan] 0.5 mg PO QPM 04/22/18 [History] Magnesium Oxide [Magnesium] 400 mg PO TID #90 tablet 05/04/18 [Rx] Pomalidomide [Pomalyst] 2 mg PO DAILY #21 capsule 05/19/18 [Rx] 3 Allergy/AdvReac Type Severity Reaction Status Date / Time No Known Allergies Allergy Verified 05/22/18 19:24 - Constitutional Constitutional: chills, fever(s), no night sweats - EENT Eyes: no blurry vision, no change in vision Ears: no ear pain, no tinnitus Nose, mouth and throat: no nasal congestion, no sore throat - Cardiovascular Cardiovascular ROS IM: no chest pain, no dyspnea - Respiratory Respiratory: no cough, no chest congestion, no excessive phlegm production - Gastrointestinal Gastrointestinal: nausea, vomiting, no diarrhea, no hematemesis, no hematochezia , no melena - Genitourinary Genitourinary: no dysuria, no flank pain - Musculoskeletal Musculoskeletal ROS IM: arthralgias, joint swelling (left foot) - Integumentary Integumentary IM: erythema, sores Additional comments: left foot - Neurological Neurological ROS: no dizziness, no focal weakness, no frequent falls, no headache(s) Additional comments: + neuropathy both feet - Psychiatric Psychiatric: no anxiety, no depression - Endocrine Endocrine IM: no polydipsia, no polyuria - Allergic/Immunologic Allergic/Immunologic: no GI upset with certain foods - Constitutional Vitals: Temp Pulse Resp BP Pulse Ox 98.4 F 75 16 136/73 95 05/23/18 04:08 05/23/18 04:08 05/23/18 04:08 05/23/18 04:08 05/23/18 04:08 General appearance: Present: cooperative, A&O X 3, pleasant, no acute distress, answers questions appropriately Exam: see below - Head Head exam: Present: atraumatic, normal inspection - Eye Eye exam: Present: EOMI, PERRL. Absent: scleral icterus Pupils: Present: normal accommodation - ENT ENT exam: Present: mucous membranes dry, normal exam, normal oropharynx - Neck Neck exam general surgery: Present: full ROM. Absent: tenderness, nuchal rigidity, thyromegaly, supple - Respiratory Respiratory exam: Present: CTAB. Absent: chest wall tenderness, rales, rhonchi , wheezes - Cardiovascular Cardiovascular exam: Present: RRR, +S1, +S2. Absent: diastolic murmur, systolic murmur - GI/Abdominal GI/Abdominal exam: Present: normal bowel sounds, soft. Absent: guarding, hepatomegaly, mass, rebound, splenomegaly, tenderness - Extremities Exam Extremities exam: Present: normal capillary refill, tenderness (left foot), warm , radial pulses palpable and symmetrical. Absent: calf tenderness Additional comments: left foot swollen, red, with ulceration/incision where foreign body was prior to removal - Back Exam Back exam: Absent: CVA tenderness (L), CVA tenderness (R) - Neurological Exam Neurological exam: Present: alert, CN II-XII intact, motor sensory deficit ( peripheral neuropathy both feet), oriented X3 - Psychiatric Psychiatric exam: Present: normal affect, normal mood - Skin Skin exam: Present: dry, warm Internal Med - H&P Results - Labs CBC & Chem 7: 05/22/18 20:43 05/22/18 20:43 - Diagnostic Studies Other Images Additional comments: Foot CT -- report reviewed - Assessment and plan (1) Sepsis Current Visit: Yes Status: Acute Assessment and plan: 1. Patient was fluid resuscitated in ER. 2. Continue IVF and trend lactate. 3. Continue IV Vancomycin and Zosyn. 4. Dr. Harrington consulted for surgical intervention. 5. Monitor on telemetry and frequent vitals. Qualifiers: Sepsis type: sepsis due to unspecified organism Qualified Code(s): A41.9 - Sepsis, unspecified organism (2) Wound of foot Current Visit: Yes Status: Acute Assessment and plan: 1. Likely source of sepsis. 2. Continue care as above. (3) Type 2 diabetes mellitus Current Visit: Yes Status: Chronic Assessment and plan: 1. Hold oral meds. 2. Will place on SSI, monitor glucose, and adjust insulin as necessary. Qualifiers: Diabetes mellitus oil heaterman insulin use: with oil heaterman use Diabetes mellitus complication detail: with diabetic retinopathy Diabetic retinopathy severity: with unspecified retinopathy severity Diabetes mellitus macular edema: macular edema presence unspecified Laterality: bilateral Qualified Code(s): E11.319 - Type 2 diabetes mellitus with unspecified diabetic retinopathy without macular edema; Z79.4 - longterm (current) use of insulin (4) CAD (coronary artery disease) Current Visit: Yes Status: Acute Assessment and plan: 1. Continue home meds as appropriate. 2. No sign of angina presently. 3. Monitor on telemetry and obtain baseline EKG. Qualifiers: Coronary Disease-Associated Artery/Lesion type: [place] artery [place] vs. transplanted heart: [place] heart Associated angina: without angina Qualified Code(s): I25.10 - Atherosclerotic heart disease of [place] coronary artery without angina pectoris (5) DVT prophylaxis Current Visit: Yes Status: Acute Assessment and plan: 1. Heparin SQ.
[2018-05-23] MEDS: *HR* Heparin 5,000 UNIT/ML VIAL SQ SCH ×3 (07:40→22:25)
[2018-05-23] MEDS: Insulin LISPRO 300 UNITS/3 ML VIAL SQ SCH ×4 (09:04→22:26)
[2018-05-23] MEDS: Gabapentin 400 MG CAPSULE PO SCH ×3 (09:04→22:25)
[2018-05-23] MEDS: Acyclovir 200 MG CAPSULE PO SCH ×2 (09:04→22:25)
[2018-05-23] MEDS: Ascorbic Acid 500 MG TABLET PO SCH (09:04)
[2018-05-23] MEDS: Metoprolol XL (24 HR) Succ 50 MG TAB.ER.24H PO SCH (09:04)
[2018-05-23] MEDS: Magnesium Oxide 400 MG TABLET PO SCH ×3 (09:04→22:25)
[2018-05-23] MEDS: Aspirin 81 MG TAB.CHEW PO SCH (09:04)
[2018-05-23] MEDS: Piperacillin/Tazobactam 3.375 GM in 0.9 % Sodium Chloride Mini Bag 100 ML IVPB SCH ×2 (09:05→17:51)
[2018-05-23] MEDS: Pomalidomide [Pomalyst] 2 MG PO SCH (09:21)
[2018-05-23] MEDS ORDERED: Aminoglycoside Consult 1 EACH MC ONE (10:55)
--- NOTE | 2018-05-23 11:27 | Podiatry Consult Note ---
Date of Encounter: 05/23/18 Time of Encounter: 09:30 Assessment and Plan (1) Cellulitis Current visit: Yes Status: Acute 10 days s/p in office removal of left foot foreign body glass, tetanus up to date per patient Reviewed with patient my findings and her condition. Her cellulitis looks drastically improved from previously seeing her in the office. Reviewed CT scan findings with patient and I personally reviewed the images. She did finish the oral antibiotic. Today I lanced the blister area and removed the sutures from the plantar foot. No surgical intervention. My recommendations are for IV antibiotics until tomorrow and woundcare at home. Discharge on oral antibiotics for 10 days. Wound care she will required at home will be Silvadene on the plantar foot incision line and maxsorb between the toes and over the blister site changed daily. Ambulate only in surgical shoe on heel. She has a follow up appt with me scheduled for this . Qualifiers: Site of cellulitis: extremity Site of cellulitis of extremity: lower extremity Laterality: left Qualified Code(s): L03.116 - Cellulitis of left lower limb History of Present Illness HPI: Ms. Saul is a 62 year old diabetic female who I saw once in the office after she had stepped on glass and on 05/13/2018 a piece of glass was removed from the plantar surface of her foot. She reported at that time her tetanus status was up-to-date. She did have cellulitis of the dorsum of her foot. The glass was in the plantar surface of her foot. She says the redness has went down drastically. She says she developed some blistering around the toes so she got concerned and came to the hospital. She also had pain in the bottom of the foot. She is ambulating in the surgical shoe. Denies fever, chills, nausea, vomiting. Patient was admitted through the ER last night. A1c 8.5%. Past Med Surg Social Fam HX - Past Medical History Medical history: cancer, CHF, coronary artery disease, DVT, diabetes, GERD, hyperlipidemia, hypertension, myocardial infarction, other Additional medical history: blood thinners, cardiac stents X 2, anemia Psychiatric history: anxiety, depression - Past Surgical History Surgical History: angioplasty/stent, other Additional surgical history: d&c,tubal ligation,laser eye,bone marrow,stem cell transplant, L humerus ORIF - Social History Smoking Status: Former smoker Smokeless Tobacco Status: No Alcohol use: none Drug use: none - Family History Mother Hx Family Cardiac Disorders: Yes Hx Family Endocrine Disorder: No Father Hx Family Cardiac Disorders: No Medications and Allergies Acyclovir [Zovirax] 400 mg PO BID 03/02/17 [History] Furosemide [Lasix] 40 mg PO DAILY 04/05/17 [History] Metformin HCl [Glucophage] 1,000 mg PO BID 04/05/17 [History] Aspirin 81 mg PO DAILY #30 tab.chew 04/09/17 [Rx] Atorvastatin [Lipitor] 80 mg PO HS #60 tablet 04/09/17 [Rx] Clopidogrel [Plavix] 75 mg PO DAILY #30 tab 04/09/17 [Rx] Lisinopril [Zestril] 2.5 mg PO DAILY #30 tab 04/09/17 [Rx] Metoprolol XL (24 HR) Succ [Toprol Xl] 100 mg PO DAILY #60 tab 04/09/17 [Rx] Potassium Chloride 20 meq PO BID #60 tab.er.prt 04/09/17 [Rx] Calcium Carbonate [Calcium] 600 mg PO BID #60 tablet 04/16/17 [Rx] Gabapentin [Neurontin] 800 mg PO TID 08/03/17 [History] Melatonin 3 mg PO HS 08/03/17 [History] Omeprazole [PriLOSEC] 40 mg PO DAILY 08/03/17 [History] Ascorbate Calcium [Vitamin C] 500 mg PO DAILY 04/13/18 [History] Ferrous Sulfate [Iron] 325 mg PO DAILY 04/13/18 [History] Glimepiride [Amaryl] 8 mg PO DAILY 04/13/18 [History] LORazepam [Ativan] 0.5 mg PO QPM 04/22/18 [History] Magnesium Oxide [Magnesium] 400 mg PO TID #90 tablet 05/04/18 [Rx] Pomalidomide [Pomalyst] 2 mg PO DAILY #21 capsule 05/19/18 [Rx] 3 Allergy/AdvReac Type Severity Reaction Status Date / Time No Known Allergies Allergy Verified 05/22/18 19:24 All Systems Reviewed: The remainder of the systems were reviewed and are negative - Constitutional Constitutional: no fever(s) - Cardiovascular Cardiovascular: no chest pain, no dyspnea - Respiratory Respiratory: no cough, no dyspnea - Musculoskeletal Musculoskeletal: other (pain left foot) Physical Exam - Constitutional Vitals: Temp Pulse Resp BP Pulse Ox 98.1 F 70 16 159/74 95 05/23/18 10:48 05/23/18 10:48 05/23/18 10:48 05/23/18 10:48 05/23/18 10:48 Exam: Well-developed and nourished female in no acute distress Capillary refill time less than 3 seconds 5 digits left foot. Left foot is warm to touch. Superficial bulla with serous fluid in between digits 2 and 3 and extends on to the dorsum of the foot at the base of the second and third digits. Very minimal faint erythema dorsum of the foot. No erythema plantarly. No purulence expressed from the plantar aspect of the foot. There are sutures intact plantarly. There is some hyperkeratotic tissue over the plantar foot incision. Sensation intact to touch CT scan-no abscess. No residual foreign body. Tiny foci of air plantar foot between second and third digits Results - Labs Result Diagrams: 05/22/18 20:43 05/22/18 20:43 Labs: Abnormal lab results WBC 2.5 K/mcL (4.3-11.1) L 05/22/18 20:43 RBC 3.37 M/mcL (3.82-4.97) L 05/22/18 20:43 Hgb 10.3 g/dL (11.5-15.4) L 05/22/18 20:43 Hct 31.7 % (35.3-44.9) L 05/22/18 20:43 MPV 8.7 fL (9.4-12.4) L 05/22/18 20:43 Neutrophils # 1.4 K/mcL (1.6-8.9) L 05/22/18 20:43 Reactive Lymphocytes Present (Not Present) A 05/22/18 20:43 Hypochromasia Present (Not Present) A 05/22/18 20:43 Sodium 135 mEq/L (136-145) L 05/22/18 20:43 Glucose 175 mg/dL (70-105) H 05/22/18 20:43 All other labs normal. Consult Discharge Plan - Plan Referrals: Dayanara Solano, CONSULTING SME [Primary Care Provider] -
--- NOTE | 2018-05-23 13:34 | Event Note ---
Date of Encounter: 05/23/18 Time of Encounter: 09:15 62-year-old female with history of multiple myeloma and diabetes, he is admitted with left foot infection. Patient had a piece of glass removed from her left forefoot about one week ago with suturing. She has been discharged on oral antibiotics, does not remember the name. She presented with worsening redness and pain on the underside of left forefoot. Seen and examined at bedside. Currently comfortable, mild pain in left foot. Extremities- left leg with trace pitting pedal edema; plantar distal left foot with dry sutures, no focal swelling/discharge; small bullae in the 2nd and third web spaces of toes Left foot infection-CT left foot shows no evidence of focal abscess or osteomyelitis but does show small focus of gas in the forefoot soft tissues between the second and third digits. No radiopaque foreign body. Patient does have leukopenia, which is likely related to multiple myeloma; had mild lactic acidosis, currently resolved after IV hydration. No other signs of sepsis. Follow-up blood cultures and continue empiric IV antibiotics- vancomycin and Zosyn. Podiatry consult noted, agree with current management. Patient underwent suture removal and lancing of blistered area today. Recommended IV antibiotics until tomorrow and discharged home on oral antibiotics for 10 days along with local wound care.
[2018-05-23] MEDS ORDERED: *HR* LORazepam 0.5 MG TABLET PO SCH (18:00)
[2018-05-23] MEDS ORDERED: Melatonin 3 MG TABLET PO SCH (21:00)
[2018-05-24] MEDS: *HR* Heparin 5,000 UNIT/ML VIAL SQ SCH ×2 (01:02→06:47)
[2018-05-24] MEDS: Piperacillin/Tazobactam 3.375 GM in 0.9 % Sodium Chloride Mini Bag 100 ML IVPB SCH (01:02)
[2018-05-24 05:49] LABS: Basophils % 1.1 %
[2018-05-24 05:50] LABS: Hematocrit 29.8 % (35.3-44.9); Hemoglobin 9.6 g/dL (11.5-15.4); Immature Granulocytes % 0.5 % (0-4); Mean Corpuscular HGB Conc 32.2 g/dL (31.6-35.5); Mean Corpuscular Hemoglobin 30.5 pg (28.0-33.3); Mean Corpuscular Volume 94.6 fL (83.0-100.0); Mean Platelet Volume 8.5 fL (9.4-12.4); Platelet Count 139 K/mcL (140-400); Red Blood Count 3.15 M/mcL (3.82-4.97); Segmented Neutrophils % 48.4 %
[2018-05-24 05:51] LABS: Eosinophils # 0.1 K/mcL (0.0-0.6); Eosinophils % 6.6 %; Lymphocytes # 0.5 K/mcL (0.6-4.6); Monocytes # 0.3 K/mcL (0.0-1.3); Monocytes % 15.4 %; Neutrophils # 0.9 K/mcL (1.6-8.9)
[2018-05-24 05:54] LABS: Prothrombin Time 10.9 Seconds (9.4-12.1)
[2018-05-24 05:57] LABS: Activated Partial Thrombo Time 35.4 Seconds (26.0-36.0)
[2018-05-24 06:07] LABS: Platelet Estimate Normal (Normal)
[2018-05-24 06:08] LABS: Alanine Aminotransferase 15 Units/L (7-52); Albumin 3.1 g/dL (3.5-5.7); Albumin/Globulin Ratio 1.1 (1.1-2.2); Alkaline Phosphatase 90 Units/L (34-104); Aspartate Amino Transferase 14 Units/L (13-39); BUN/Creatinine Ratio 28 (6-26); Bilirubin,Total 0.4 mg/dL (0.3-1.0); Blood Urea Nitrogen 15 mg/dL (8-23); Calcium 8.1 mg/dL (8.6-10.3); Carbon Dioxide 25 mEq/L (23-29); Chloride 108 mEq/L (98-107); Globulin 2.8 g/dL (2.4-3.5); Glucose 201 mg/dL (70-105); Magnesium 1.8 mg/dL (1.6-2.6); Osmolality,Calculated 297 (280-300); Potassium 3.8 mEq/L (3.5-5.1); Sodium 140 mEq/L (136-145); Total Protein 5.9 g/dL (6.4-8.9); eGFR For Non-African Americans > 60 (> 60)
[2018-05-24 07:10] VITALS: BP 170/84
[2018-05-24] MEDS ORDERED: Silver Sulfadiazine 50 GM TUBE TP SCH (09:00)
--- NOTE | 2018-05-24 09:08 | Discharge Summary ---
- NOTES TO OUTPATIENT PROVIDER Notes to Outpatient Provider: Left foot infection and mild cellulitis, needs Podiatry f/up as outpatient, being discharged on oral antibiotics; Orders not resulted at time of discharge: Pending orders 05/24/18 10:00 Vancomycin,Trough Timed Date of Encounter: 05/24/18 Time of Encounter: 09:07 - Discharge Diagnosis (1) Wound of foot Priority: Primary Status: Acute (2) Type 2 diabetes mellitus Priority: Secondary Status: Chronic Qualifiers: Diabetes mellitus chcf insulin use: without chcf use Diabetes mellitus complication status: with unspecified complications Qualified Code(s) : E11.8 - Type 2 diabetes mellitus with unspecified complications (3) CAD (coronary artery disease) Priority: Secondary Status: Chronic Qualifiers: Coronary Disease-Associated Artery/Lesion type: [place] artery [place] vs. transplanted heart: [place] heart Associated angina: without angina Qualified Code(s): I25.10 - Atherosclerotic heart disease of [place] coronary artery without angina pectoris (4) Essential hypertension Priority: Secondary Status: Chronic (5) Multiple myeloma Priority: Secondary Status: Chronic Qualifiers: Multiple myeloma remission status: in remission Qualified Code(s): C90.01 - Multiple myeloma in remission Hospital course: Ms. Saul is a 62 year old female with the above medical problems, who was admitted with left foot pain and swelling. Patient was seen by podiatry about a week ago due to mild left forefoot infection due to stepping on a glass piece , which was removed and sutured. CT left foot in the emergency room, shows no evidence of focal abscess or osteomyelitis but does show small focus of gas in the forefoot soft tissues between the second and third digits. No radiopaque foreign body. She was started on broad-spectrum IV antibiotics-vancomycin and Zosyn for possible cellulitis/abscess. Podiatry was consulted, she underwent suture removal of left forefoot and was recommended to be discharged on oral antibiotics for 10 days along with local wound care, with outpatient podiatry follow-up. Patient is noted to have poorly controlled blood pressure and blood sugars and she was encouraged to be compliant with medications and follow up with her PCP for further management. Discharge discussed with: patient, nurse - Time Spent with Patient Total time spent providing and/or coordinating discharge services: Greater than 30 minutes (40 min) - Discharge Medications Prescriptions: Gauze Bandage [Kerlix] 1 each TP DAILY #10 bandage Silver Sulfadiazine [Silvadene] 1 appl TP DAILY #1 tube Sulfamethoxazole/Trimeth DS [Bactrim Ds] 1 each PO BID #20 tablet Home Medications: Acyclovir [Zovirax] 400 mg PO BID 03/02/17 [History] Furosemide [Lasix] 40 mg PO DAILY 04/05/17 [History] Metformin HCl [Glucophage] 1,000 mg PO BID 04/05/17 [History] Aspirin 81 mg PO DAILY #30 tab.chew 04/09/17 [Rx] Atorvastatin [Lipitor] 80 mg PO HS #60 tablet 04/09/17 [Rx] Clopidogrel [Plavix] 75 mg PO DAILY #30 tab 04/09/17 [Rx] Metoprolol XL (24 HR) Succ [Toprol Xl] 100 mg PO DAILY #60 tab 04/09/17 [Rx] Potassium Chloride 20 meq PO BID #60 tab.er.prt 04/09/17 [Rx] Calcium Carbonate [Calcium] 600 mg PO BID #60 tablet 04/16/17 [Rx] Gabapentin [Neurontin] 800 mg PO TID 08/03/17 [History] Melatonin 3 mg PO HS 08/03/17 [History] Omeprazole [PriLOSEC] 40 mg PO DAILY 08/03/17 [History] Ascorbate Calcium [Vitamin C] 500 mg PO DAILY 04/13/18 [History] Ferrous Sulfate [Iron] 325 mg PO DAILY 04/13/18 [History] Glimepiride [Amaryl] 8 mg PO DAILY 04/13/18 [History] LORazepam [Ativan] 0.5 mg PO QPM 04/22/18 [History] Magnesium Oxide [Magnesium] 400 mg PO TID #90 tablet 05/04/18 [Rx] Pomalidomide [Pomalyst] 2 mg PO DAILY #21 capsule 05/19/18 [Rx] Gauze Bandage [Kerlix] 1 each TP DAILY #10 bandage 05/24/18 [Rx] Lisinopril [Zestril] 5 mg PO DAILY #30 tab 05/24/18 [Rx] Silver Sulfadiazine [Silvadene] 1 appl TP DAILY #1 tube 05/24/18 [Rx] Sulfamethoxazole/Trimeth DS [Bactrim Ds] 1 each PO BID #20 tablet 05/24/18 [Rx] Allergies/Adverse Reactions: 3 Allergy/AdvReac Type Severity Reaction Status Date / Time No Known Allergies Allergy Verified 05/22/18 19:24 Date of admission: 05/23/18 04:47 Primary care physician: Dayanara Solano CNP Discharging clinician: Belia Romo Anticipated date of discharge: 05/24/18 - Constitutional Vitals: Temp Pulse Resp BP Pulse Ox 98.2 F 71 16 170/84 96 05/24/18 07:00 05/24/18 07:00 05/24/18 07:00 05/24/18 07:00 05/24/18 07:00 General appearance: Present: cooperative, A&O X 3, no acute distress, answers questions appropriately Exam: . - Cardiovascular Cardiovascular exam: Present: RRR, +S1, +S2. Absent: diastolic murmur, gallop, rubs, systolic murmur - Patient Status Disposition: Home, Self-Care Condition: Fair Functional capacity at discharge: independent ambulation Overall status at discharge: patient is progressing back to baseline - Discharge Instructions Follow Up With: Dayanara Solano CNP [Primary Care Provider] - Additional Instructions: F/up with Podiatry in 1 week F/up with PCP in 1-2 weeks - Diet and Activity Activity: resume usual activities as tolerated Diet: diabetic diet, low fat, low cholesterol, low salt diet
[2018-05-24] MEDS: Gabapentin 400 MG CAPSULE PO SCH (09:42)
[2018-05-24] MEDS: Aspirin 81 MG TAB.CHEW PO SCH (09:42)
[2018-05-24] MEDS: Metoprolol XL (24 HR) Succ 50 MG TAB.ER.24H PO SCH (09:43)
[2018-05-24] MEDS: Acyclovir 200 MG CAPSULE PO SCH (09:43)
[2018-05-24] MEDS: Pomalidomide [Pomalyst] 2 MG PO SCH (09:43)
[2018-05-24] MEDS: Magnesium Oxide 400 MG TABLET PO SCH (09:43)
[2018-05-24] MEDS: Ascorbic Acid 500 MG TABLET PO SCH (09:43)
[2018-05-24] MEDS ORDERED: Sulfamethoxazole/Trimeth DS 1 EACH TABLET PO SCH (09:45)
[2018-05-24] MEDS ORDERED: Insulin LISPRO 300 UNITS/3 ML VIAL SQ SCH (21:00)
--- NOTE | 2018-05-26 07:37 | Electrocardiograph Report ---
[address] [address] Test Date: 2018-05-23 Pat Name: Linsey Saul Department: 112 Room: 2A Gender: F [employer] Helper: J LUIS : 1955 Requested By: Brock Arce Order Number: [id number] Reading MD: Daiana Lawler Measurements Intervals [place] Rate: 71 P: 38 LA: 183 QRS: 71 QRSD: 89 T: 81 QT: 392 QTc: 415 Interpretive Statements SINUS RHYTHM LOW QRS VOLTAGE IN PRECORDIAL LEADS NONSPECIFIC T-WAVE ABNORMALITY Electronically Signed On 05-26-2018 7:36:10 EDT by Daiana Lawler
== END 2018-05-24 10:56 | disposition home or self-care (01) | DRG 720 ==
LOC: EMEROOARM 20:18 → 2ANU 20:18 → SUATTDRO 05-23 04:47
PROVIDERS: ADMIT Pediatrics; ATTEND Internal Medicine